=== PATIENT | male | born 1930 | race Caucasian/White ===

== ENCOUNTER 2016-08-24 00:26 | Inpatient (IN) | payer MEDICARE, BC ==
[~2016-08-24] VITALS: Ht 175.3 cm; Wt 77.6 kg
[2016-08-24] VITALS (14 sets, daily range): BP systolic 92–166; BP diastolic 42–69; PULSE 62–90; RESP 16–24; TEMP 96.7–101.9; O2SAT 95–99
[~2016-08-24 00:26] MED LIST: ASPI81TA82 PO; BENA5TAB PO; CARV12.52 PO; CENTTAB9 PO; HCTZ50TA PO; OCUVTAB4 PO; ULOR40TA PO; ZOCO40TA PO
[2016-08-24] MEDS ORDERED: SODIUM CHLOR 0.9% 1000 ML INJ 1,000 ML IV SCH ×2 (00:57→02:00)
[2016-08-24] MEDS ORDERED: SODIUM CHLORIDE 0.9% FLUSH 5 ML FLUSH IVF PRN ×2 (01:00→04:00)
[2016-08-24] MEDS ORDERED: MORPHINE SULFATE 4 MG/ML INJ IV PUSH ONE (01:00)
[2016-08-24] MEDS ORDERED: ONDANSETRON HCL 4 MG/2 ML VIAL IVP ONE (01:00)
--- NOTE | 2016-08-24 01:02 | PD ---
HPI Chief Complaint: Abdominal Pain Time Seen by Provider: 00:57 Travel History International Travel<30 days: No Contact w/Intl Traveler<30days: No Traveled to known affect area: No History of Present Illness HPI The patient is an 86-year-old male that complains of primarily right sided pain from the right flank to the right lower quadrant for one week. He also has left -sided abdominal pain and tenderness. He did not call his primary care physician. He states he has been slightly constipated but denies any nausea or vomiting. He denies any fever. He denies any diarrhea. He denies any dysuria , frequency or urgency. He does have a history of kidney stones many years ago. 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; PM 1989) High Cholesterol: Yes Coronary Artery Disease: Yes Hypertension: Yes Triglycerides - High: Yes Past Surgical History Body Medical Devices: PACER Cardiac Surgery: Yes (OPEN HEART) Pacemaker: Yes (MEDTRONIC) Social History Alcohol Use: Yes (RARE) Tobacco Use: No Substance Use: No Allergies-Medications (Allergen,Severity, Reaction): Coded Allergies: Tylenol (Unverified Allergy, Severe, Swelling, 08/24/16) Reported Meds & Prescriptions Reported Meds & Active Scripts Active Reported Preservision Areds (Multiple Vitamins W/ Minerals) 1 Tab 1 Tab PO DAILY Multi Vitamin (Multiple Vitamin) 1 Tab Tab 1 Tab PO DAILY Omeprazole 40 Mg Cap 40 Mg PO DAILY Carvedilol 25 Mg Tab 25 Mg PO BID Triamterene-Hydrochlorothiazide 37.5-25 Mg Cap 1 Cap PO DAILY Benazepril (Benazepril HCl) 5 Mg Tab 5 Mg PO DAILY Aspirin 81 Mg Chew 81 Mg CHEW DAILY Review of Systems Except as stated in HPI: all other systems reviewed are Neg Physical Exam Narrative GENERAL: The patient is alert, oriented 3 in moderate apparent distress with his abdominal pain. His vital signs are normal. SKIN: Warm and dry. HEAD: Atraumatic. Normocephalic. EYES: Pupils equal and round. No scleral icterus. No injection or drainage. ENT: No nasal bleeding or discharge. Mucous membranes pink and moist. NECK: Trachea midline. No JVD. CARDIOVASCULAR: Regular rate and rhythm. No murmur appreciated. RESPIRATORY: No accessory muscle use. Clear to auscultation. Breath sounds equal bilaterally. GASTROINTESTINAL: Abdomen soft, with tenderness in the right flank and right lower quadrant as well as left flank and left lower quadrant to direct palpation , nondistended. Hepatic and splenic margins not palpable. No guarding or rebound is present. MUSCULOSKELETAL: No obvious deformities. No clubbing. No cyanosis. No edema. NEUROLOGICAL: Awake and alert. No obvious cranial nerve deficits. Motor grossly within normal limits. Normal speech. PSYCHIATRIC: Appropriate mood and affect; insight and judgment normal. Data Data Last Documented VS Vital Signs Date Time Temp Pulse Resp B/P Pulse Ox O2 Delivery O2 Flow Rate FiO2 08/24/16 02:05 101.9 88 24 166/69 97 Nasal Cannula 2 Orders Complete Blood Count With Diff (08/24/16 00:57) Comprehensive Metabolic Panel (08/24/16 00:57) Urinalysis - C+S If Indicated (08/24/16 00:57) Ct Abd/Pel W Iv Contrast(Rout) (08/24/16 00:57) Iv Access Insert/Monitor (08/24/16 00:57) Ecg Monitoring (08/24/16 00:57) Oximetry (08/24/16 00:57) Morphine Inj (Morphine Inj) (08/24/16 01:00) Ondansetron Inj (Zofran Inj) (08/24/16 01:00) Sodium Chlor 0.9% 1000 Ml Inj (Ns 1000 M (08/24/16 00:57) Sodium Chloride 0.9% Flush (Ns Flush) (08/24/16 01:00) Lipase (08/24/16 00:57) Sodium Chlor 0.9% 1000 Ml Inj (Ns 1000 M (08/24/16 02:00) Lactic Acid (08/24/16 02:04) Blood Culture (08/24/16 02:04) Ketorolac Inj (Toradol Inj) (08/24/16 02:15) Electrocardiogram (08/24/16 ) Iohexol 350 Inj (Omnipaque 350 Inj) (08/24/16 02:36) Labs Laboratory Tests Test 08/24/16 01:20 White Blood Count 10.6 TH/MM3 Red Blood Count 3.63 MIL/MM3 Hemoglobin 10.9 GM/DL Hematocrit 33.4 % Mean Corpuscular Volume 92.2 FL Mean Corpuscular Hemoglobin 30.0 PG Mean Corpuscular Hemoglobin 32.5 % Concent Red Cell Distribution Width 12.8 % Platelet Count 223 TH/MM3 Mean Platelet Volume 6.9 FL Neutrophils (%) (Auto) 83.1 % Lymphocytes (%) (Auto) 11.2 % Monocytes (%) (Auto) 3.8 % Eosinophils (%) (Auto) 0.8 % Basophils (%) (Auto) 1.1 % Neutrophils # (Auto) 8.8 TH/MM3 Lymphocytes # (Auto) 1.2 TH/MM3 Monocytes # (Auto) 0.4 TH/MM3 Eosinophils # (Auto) 0.1 TH/MM3 Basophils # (Auto) 0.1 TH/MM3 CBC Comment AUTO DIFF Differential Comment AUTO DIFF CONFIRMED Platelet Estimate NORMAL Platelet Morphology Comment NORMAL Red Cell Morphology Comment NORMAL Sodium Level 140 MEQ/L Potassium Level 4.3 MEQ/L Chloride Level 103 MEQ/L Carbon Dioxide Level 27.2 MEQ/L Anion Gap 10 MEQ/L Blood Urea Nitrogen 26 MG/DL Creatinine 1.50 MG/DL Estimat Glomerular Filtration 45 ML/MIN Rate Random Glucose 134 MG/DL Calcium Level 8.7 MG/DL Total Bilirubin 0.5 MG/DL Aspartate Amino Transf 9 U/L (AST/SGOT) Alanine Aminotransferase 15 U/L (ALT/SGPT) Alkaline Phosphatase 97 U/L Total Protein 6.9 GM/DL Albumin 3.1 GM/DL Lipase 51 U/L MDM Medical Decision Making Medical Screen Exam Complete: Yes Emergency Medical Condition: Yes Medical Record Reviewed: Yes Interpretation(s) The CBC shows a hemoglobin of 10.9 and hematocrit of 33.4. There are 83% neutrophils. The CBC is otherwise unremarkable. The complete metabolic profile shows a BUN of 26, creatinine 1.5 with glucose 134 and albumin 3.1. The lipase is normal. The CT abdomen/pelvis with IV contrast shows acute appendicitis also shows a left renal mass that is likely renal cell carcinoma and 2 questionable points of air density in the left psoas muscle which may be an abscess versus an old hematoma. Differential Diagnosis Ischemic bowel, urinary stone, cholecystitis, pyelonephritis, appendicitis, perforated appendicitis Narrative Course The patient is suspicious of having a perforated appendicitis. It is gone on for a week now and there is questionable air in the abdomen which may be an abscess. He also has what appears as a renal cell carcinoma. Sepsis Criteria SIRS Criteria (2 or more): Temp > 100.9 or < 96.8 Physician Communication Physician Communication I discussed the patient with Dr. Pepe vernon. The patient will be a full admit because this is likely a perforated appendicitis and the patient also needs to be worked up for renal cell cancer. The patient will be given 3 mg of Zosyn. Diagnosis Primary Impression: Acute perforated appendicitis Additional Impression: Renal cell cancer Admitting Information Admitting Physician Requests: Admit Neno Loyola MD Aug 24, 2016 01:02
[2016-08-24] MEDS ORDERED: CARV25TA PO (01:10)
[2016-08-24] MEDS ORDERED: ULOR40TA PO (01:10)
[2016-08-24] MEDS ORDERED: OMEP40CA2 PO (01:10)
[2016-08-24] MEDS ORDERED: OCUVTAB4 PO (01:10)
[2016-08-24] MEDS ORDERED: MULT-135 PO (01:10)
[2016-08-24] MEDS ORDERED: ASPI81CH CHEW (01:10)
[2016-08-24] MEDS ORDERED: BENA5TAB PO (01:10)
[2016-08-24] MEDS ORDERED: TRIA37.53 PO (01:10)
[2016-08-24 01:27] LABS: AUTOMATED NEUTROPHIL # 8.8 TH/MM3 (1.8-7.7); BASOPHIL # 0.1 TH/MM3 (0-0.2); BASOPHIL % 1.1 % (0.0-2.0); EOSINOPHIL # 0.1 TH/MM3 (0-0.4); EOSINOPHIL % 0.8 % (0.0-4.0); HEMATOCRIT 33.4 % (39.0-51.0); LYMPH % 11.2 % (9.0-44.0); LYMPHOCYTE # 1.2 TH/MM3 (1.0-4.8); MEAN CELL VOLUME 92.2 FL (80.0-100.0); MEAN CORPUSCULAR HGB CONC 32.5 % (32.0-36.0); MONO % 3.8 % (0.0-8.0); NEUT % 83.1 % (16.0-70.0); PLATELET COUNT 223 TH/MM3 (150-450); RED BLOOD COUNT 3.63 MIL/MM3 (4.50-5.90); RED CELL DISTRIBUTION WIDTH 12.8 % (11.6-17.2); WHITE BLOOD COUNT 10.6 TH/MM3 (4.0-11.0)
[2016-08-24 01:29] LABS: HEMO FLAGS AUTO DIFF
[2016-08-24 01:34] LABS: CHLORIDE 103 MEQ/L (98-107); POTASSIUM 4.3 MEQ/L (3.5-5.1); SODIUM (NA) 140 MEQ/L (136-145)
[2016-08-24 01:38] LABS: ANION GAP 10 MEQ/L (5-15); BICARBONATE 27.2 MEQ/L (21.0-32.0); BLOOD UREA NITROGEN 26 MG/DL (7-18)
[2016-08-24 01:40] LABS: PLATELET ESTIMATE SMEAR NORMAL (NORMAL); PLATELET MORPHOLOGY NORMAL (NORMAL); SCAN/DIFF AUTO DIFF CONFIRMED
[2016-08-24 01:41] LABS: ALT (GPT) 15 U/L (12-78); AST (GOT) 9 U/L (15-37); GLOMERULAR FILTRATION RATE 45 ML/MIN (>89)
[2016-08-24 01:42] LABS: TOTAL BILIRUBIN ADULT 0.5 MG/DL (0.2-1.0)
[2016-08-24 01:44] LABS: ALKALINE PHOSPHATASE 97 U/L (45-117)
[2016-08-24] MEDS ORDERED: KETOROLAC TROMETHAMINE 60 MG/2 ML (IM) VIAL IVP ONE (02:15)
[2016-08-24] MEDS ORDERED: IOHEXOL 350 MG/ML 10 ML VIAL (for RAD DIAG) IV ONE (02:36)
--- NOTE | 2016-08-24 02:55 | RADHPO ---
EXAM DATE/TIME: 08/24/2016 02:32 [facility] COMPARISON: No previous studies available for comparison. INDICATIONS : Right abdomen pain today. IV CONTRAST: 100 cc Omnipaque 350 (iohexol) IV ORAL CONTRAST: No oral contrast ingested. RADIATION DOSE: 15.86 CTDIvol (mGy) MEDICAL HISTORY : Hypertension. SURGICAL HISTORY : Pacemaker. hip replacement. ENCOUNTER: Initial ACUITY: 1 day PAIN SCALE: 8/10 LOCATION: Right abdomen TECHNIQUE: Volumetric scanning of the abdomen and pelvis was performed. Using automated exposure control and ad justment of the mA and/or kV according to patient size, radiation dose was kept as low as reasonably achievable to obtain optimal diagnostic quality images. FINDINGS: LOWER LUNGS: The visualized lower lungs are clear. The patient is status post sternotomy and has a pacing device i n place. LIVER: Homogeneous density without lesion. There is no dilation of the biliary tree. No calcified gallston es. SPLEEN: Normal size without lesion. PANCREAS: Within normal limits. KIDNEYS: There is a 3.1 cm heterogeneous solid mass seen at the posterior inferior lateral left kidney which n eeds to be viewed with suspicion. There is no stone or hydronephrosis. Renal cysts are seen. ADRENAL GLANDS: Within normal limits. VASCULAR: There is no aortic aneurysm. BOWEL/MESENTERY: There is a very distended appendix measuring 1.9 cm with surrounding inflammatory change. There is so me thickening of the right paracolic gutter. There is a small hiatal hernia. Colonic diverticula are seen. There is a mild amount of free fluid seen in the pelvis. ABDOMINAL WALL: Within normal limits. RETROPERITONEUM: There is no lymphadenopathy. BLADDER: No wall thickening or mass. REPRODUCTIVE: Within normal limits. INGUINAL: There is no lymphadenopathy or hernia. MUSCULOSKELETAL: There is a 2.8 cm area of low density seen in the posterior left psoas at the level of the thoracic i nlet. There is degenerative change in the lumbar spine. There is a left hip prosthesis in place.CONCL USION: 1. Appendicitis. 2. 3.1 cm left renal mass potentially representing a renal cell carcinoma. 3. 2 points and air area of low-density in the left psoas muscle which may be an abscess versus an ol d hematoma. Jimmy Reynaga MD on August 24, 2016 at 2:48 Board Certified Radiologist. This report was verified electronically.
[2016-08-24] MEDS ORDERED: PIPERACIL-TAZO 3.375 GM PREMIX 50 ML IV ONE (03:15)
[2016-08-24] MEDS ORDERED: ONDANSETRON HCL 4 MG/2 ML VIAL IV PRN (04:00)
[2016-08-24 05:07] LABS: BLOOD, URINE TRACE (NEG); GLUCOSE,URINE NEG (NEG); KETONE, URINE NEG (NEG); NITRITE,URINE NEG (NEG)
[2016-08-24 05:16] LABS: URINE COLOR YELLOW (YELLW/STRAW)
[2016-08-24 05:17] LABS: COMMENT (UR) CULT NOT INDICATED; CULTURE IF INDICATED CULT NOT INDICATED; RBC, URINE 0-3 /hpf (0-3); SQUAMOUS EPITHELIAL CELL URINE 0-5 /hpf (0-5); WBC, URINE 0-2 /hpf (0-5)
[2016-08-24] MEDS ORDERED: MORPHINE SULFATE 4 MG/ML INJ IV PRN (08:30)
[2016-08-24] MEDS ORDERED: SODIUM CHLORIDE 0.9% FLUSH 5 ML FLUSH IV FLUSH PRN (08:30)
[2016-08-24] MEDS ORDERED: SODIUM CHLORIDE 0.9% FLUSH 5 ML FLUSH IVF SCH (09:00)
[2016-08-24] MEDS ORDERED: SODIUM CHLORID 0.9% 500 ML IV SCH (10:00)
[2016-08-24] MEDS ORDERED: LACTATED RINGER'S 1000 ML IV SCH (10:00)
[2016-08-24] MEDS: SODIUM CHLORIDE 0.9% FLUSH 5 ML FLUSH IV FLUSH SCH ×2 (10:10→22:05)
[2016-08-24] MEDS: PANTOPRAZOLE SODIUM 40 MG VIAL IV SCH (10:10)
[2016-08-24] MEDS ORDERED: METOPROLOL TARTRATE 25 MG TAB PO PRN (10:30)
[2016-08-24] MEDS ORDERED: INSULIN HUMAN REGULAR 1,000 UNITS/10 ML VIAL SQ PRN (10:30)
[2016-08-24] MEDS ORDERED: PIPERACIL-TAZO 3.375 GM PREMIX 50 ML IV SCH (11:00)
[2016-08-24] MEDS ORDERED: DEXAMETHASONE SOD PHOS 4 MG/ML VIAL ONE (11:17)
[2016-08-24] MEDS ORDERED: FAMOTIDINE 20 MG/2 ML VIAL ONE (11:17)
[2016-08-24] MEDS ORDERED: MIDAZOLAM HCL 2 MG/2 ML VIAL ONE (11:17)
[2016-08-24] MEDS ORDERED: BUPIVACAINE/EPINEPHRINE 0.25% PF 30 ML VIAL INFIL ONE (11:47)
--- NOTE | 2016-08-24 11:58 | MH ---
cc: KELSIE ROSENBERG M.D. DATE OF ADMISSION: 08/24/2016 CHIEF COMPLAINT Abdominal pain. HISTORY OF PRESENT ILLNESS Mr. Gary is a very pleasant 86-year-old gentleman who presented to the emergency department early this morning with complaints of abdominal pain. He was seen and evaluated by Dr. Neno Loyola. He has worked up and found to have concerns for possible perforated appendicitis by CT scan abdomen and pelvis. Surgical consultation was requested. The patient reports that he has had some right flank and low back pain for the last several weeks. He reports undergoing a hip replacement by Dr. Ken swartz in May. Since then he has had some low back and flank pain. He states that when he went to physical therapy yesterday he developed some abdominal pain. Abdominal pain was mainly in the right lower quadrant. He states that when he went to go to bed last night he was still hurting and he asked his neighbor to bring him to the emergency room. In the emergency room he was seen by Dr. Loyola where he was worked up and had a CT scan that was concerning for possible perforated appendicitis. The patient reports no fever or chills. He denies any nausea or vomiting. He does report some constipation. He has not moved his bowels for several days. He states he has had some urinary problems since his hip replacement due to the fact that they catheterized him and he apparently has an appointment with Dr. Fab Cortes tomorrow for evaluation of his urinary dysfunction. PAST MEDICAL HISTORY Past medical history includes: 1. Cardiac arrhythmia. 2. Coronary artery disease. 3. Hypertension. PAST SURGICAL HISTORY 1. He has had open heart surgery approximately 20 years ago. 2. He has had a pacemaker placed. MEDICATION His medication list includes: 1. Multivitamin. 2. Prilosec. 3. Carvedilol. 4. Triamterene hydrochlorothiazide. 5. Benazepril. 6. Aspirin 81 mg a day. ALLERGIES He is allergic to TYLENOL. SOCIAL HISTORY He does not smoke or drink. [place]. FAMILY HISTORY His family history is noncontributory. PHYSICAL EXAMINATION VITAL SIGNS: Temperature is 98, pulse is 100.5, blood pressure is 118/52, respiratory rate 20. GENERAL: This is a pleasant elderly gentleman sitting in his bed visiting with his neighbor, no apparent distress. HEENT: Pupils equal, round, reactive to light. Sclerae are white. Oropharynx is clear and moist. NECK: Neck is supple. No masses. LUNGS: Clear to auscultation bilaterally. HEART: S1-S2, no murmur. ABDOMEN: Soft, tender in the right lower quadrant with some voluntary guarding and rebound. He also has Rovsing's and psoas sign. No abdominal masses. EXTREMITIES: Free range of motion x4. NEUROLOGIC: Alert and oriented x3. LABORATORY DATA White blood cell count 10 with 83% neutrophils. Hemoglobin is 10, platelet count is 223. Electrolytes are basically within normal limits. Slight elevation of BUN at 26 and creatinine at 1.50. GFR is 45. Glucose elevated at 134. IMAGING STUDIES CT scan of the abdomen and pelvis shows a thickened appendix in the right lower quadrant with inflammation changes and small amount of free fluid, all concerning for possible perforated appendicitis. The patient also has what appears to be a psoas hematoma and a left renal mass. IMPRESSION Acute appendicitis, possibly perforated. PLAN The patient will be taken to the operating room this morning for diagnostic laparoscopy, laparoscopic appendectomy. Risks and benefits of the procedure was discussed with him and he was agreeable. The patient has already been started on broad-spectrum antibiotics by the emergency department. MD MARE Mcduffie/BENTLEY /11:20 AM /11:27 AM
[2016-08-24] MEDS ORDERED: ONDANSETRON HCL 4 MG/2 ML VIAL IV PUSH ONE (12:52)
[2016-08-24] MEDS ORDERED: ePHEDrine/NS 50 MG/5 ML SYR IV ONE (12:52)
[2016-08-24] MEDS ORDERED: NEOSTIGMINE 3 MG/3 ML SYR IV ONE (12:52)
[2016-08-24] MEDS ORDERED: PROPOFOL 200 MG/20 ML AMP IV ONE (12:52)
[2016-08-24] MEDS ORDERED: DO NOT ADM ANY ANTICOAGULANT DRUGS XX PRN (13:30)
[2016-08-24] MEDS ORDERED: fentaNYL CITRATE 250 MCG/5 ML AMP ONE (14:23)
[2016-08-24] MEDS: LACTATED RINGER'S 1000 ML INJ 1,000 ML IV SCH ×2 (14:30→18:26)
--- NOTE | 2016-08-24 16:16 | MP ---
cc: KELSIE ROSENBERG M.D. DATE OF SURGERY: 08/24/2016 PREOPERATIVE DIAGNOSIS: Probable perforated appendicitis POSTOPERATIVE DIAGNOSIS: Perforated gangrenous appendicitis. OPERATIVE PROCEDURE PERFORMED: 1. Diagnostic laparoscopy 2. Attempted appendectomy. 3. Incision and drainage of right lower quadrant abscess with placement of drain. SURGEON: Kelsie Rosenberg MD. HEDIS NURSE: MICHAEL Awad. ANESTHESIA: General endotracheal anesthesia. COMPLICATIONS: None. INDICATIONS FOR THE PROCEDURE: Mr. Gary is a pleasant 86-year-old gentleman who apparently has been having some abdominal pain for approximately seven days. He thought this was related to the physical therapy for his recent the hip replacement several months ago. His pain persisted and became unbearable. He was brought to the emergency department by a friend of his early this morning. He was seen and evaluated by Dr. Loyola and he was worked up and found to have a CT scan concerning for appendicitis with probable rupture as well as a left renal mass. Surgical consultation was requested. The patient was seen and evaluated. He was noted have a minimal elevation of his white count with a large percentage of neutrophils. He was not tachycardiac or hypotensive. He did have a significant abdominal pain in the right lower quadrant. He was advised to undergo diagnostic laparoscopy, possible appendectomy, possible drainage of right lower quadrant abscess. It should be noted that the patient did not have a definable large abscess that was amenable to percutaneous drainage. Risks and benefits were discussed with him and he was agreeable. DESCRIPTION OF THE PROCEDURE IN DETAIL: The patient was identified and brought to the operating room and placed supine on the operating table. After adequate general endotracheal anesthesia was achieved, the abdomen was prepped and draped in the standard surgical fashion. The infraumbilical space was anesthetized with 0.25% Marcaine. An infraumbilical incision was made. Dissection was carried down through the subcutaneous tissue to the midline fascia. The midline fascia was then incised sharply. A finger was placed in peritoneal cavity without difficulty. Immediately we noted purulent fluid coming out of the umbilical incision. A 10 mm trocar was inserted and the abdomen was insufflated to 15 mmHg using CO2 gas. Next a 30-degree laparoscope was inserted. Immediately we noted diffuse peritonitis with purulent fluid throughout the abdominal cavity. Two 5 mm trocars were then placed in the lower midline under direct vision. The trocars were placed after anesthetizing the skin and subcutaneous tissue with 0.25% Marcaine. Next, the suction assistant corporate controller was used to evacuate out all the pus. The patient had a significant inflammatory rind in the right lower quadrant and this was taken down with the suction assistant corporate controller as well. Attention was directed to the cecum, which was noted be quite distended. By CT imaging, the patient had a large amount of stool in the cecum. Several loops of small bowel were matted over in this area and these were carefully taken down with blunt and hydrodissection. What appeared to be the appendix was going out laterally toward the lateral retroperitoneal position. Again, using the suction assistant corporate controller out, we were able to identify the abscess cavity. A large amount of pus was identified and suctioned out. There was a large amount of necrotic material in this area. This was followed up along the lateral abdominal wall to where the inflammatory process terminated. We were unable to identify any tubular structure which appeared to be the appendix. We found several pieces of what appeared to be the appendix. There was no definable appendix itself. We were able to identify what we thought was the proximal appendix going into the cecal base. We identified a point of perforation in this proximal appendix. We mobilized up the stump and what was left of the appendix. We placed an Endoloop on it just proximal to where the site of perforation was. We did not transect the remaining appendix as it was very short and the harmonic scalpel was very close to where the Endoloop was placed. We next rinsed the abdominal cavity out with 6 liters of warm saline solution until the effluent was noted to be clear. The cecum was carefully inspected. There was no evidence of enterotomy and there was no evidence of leakage of stool. We also inspected the terminal ileum going into the cecum and it was without obvious injury. A 10-Lebanese Olivier-Moran drain was inserted and placed into the lateral abdominal sidewall where the inflammatory process and necrotic tissue was identified. We also laid it adjacent to the cecal base where the stump of the appendix appeared to be. It terminated down in the pelvis. It was brought out through one of the 5-mm port sites in the lower midline. Again, the abdomen was rinsed out a third time and the effluent was noted be clear. The omentum was then placed over the cecal base and over the Olivier-Moran drain. The abdomen was then carefully desufflated. Midline fascia was repaired with a #0 Vicryl in a [id number] fashion. Skin was closed with 4-0 Vicryl. The drain was secured with 3-0 nylon. The patient tolerated the procedure well. No specimens were sent as there was no remaining piece of the appendix large enough to send. The patient was brought to recovery in stable condition. MD MARE Mcduffie/JAYNE /2:30 PM /3:55 PM
[2016-08-24] MEDS: PIPERACIL-TAZO 3.375 GM PREMIX 50 ML IV SCH (17:32)
--- NOTE | 2016-08-24 18:56 | EKG ---
Date Performed: 08/24/2016 Time Performed: 08:35:48 PTAGE: 86 years EKG: ELECTRONIC VENTRICULAR PACEMAKER ABNORMAL RHYTHM ECG PREVIOUS TRACING : 06/01/2014 10.26 Compared to prior tracing no significant change DOCTOR: Tarun Lua Interpretating Date/Time 08/24/2016 18:55:42
--- NOTE | 2016-08-24 19:43 | EKG ---
Date Performed: 08/24/2016 Time Performed: 02:51:00 PTAGE: 86 years EKG: Sinus rhythm with V pacing PREVIOUS TRACING : 06/01/2014 10.26 Compared to the previous tracing, previously AV-paced , [facility] DOCTOR: Tarun Lua Interpretating Date/Time 08/24/2016 19:41:40
[2016-08-25] VITALS (8 sets, daily range): BP systolic 94–126; BP diastolic 50–76; PULSE 58–64; RESP 16–18; TEMP 96.5–98.2; O2SAT 64–97
[2016-08-25] MEDS: PIPERACIL-TAZO 3.375 GM PREMIX 50 ML IV SCH ×3 (02:04→17:41)
[2016-08-25] MEDS: LACTATED RINGER'S 1000 ML INJ 1,000 ML IV SCH ×2 (04:20→12:57)
[2016-08-25] MEDS: SODIUM CHLORIDE 0.9% FLUSH 5 ML FLUSH IV FLUSH SCH ×2 (09:00→21:00)
[2016-08-25 09:13] LABS: AUTOMATED NEUTROPHIL # 16.2 TH/MM3 (1.8-7.7); BASOPHIL % 0.1 % (0.0-2.0); HEMATOCRIT 28.8 % (39.0-51.0); HEMO FLAGS DIFF FINAL; LYMPH % 4.5 % (9.0-44.0); LYMPHOCYTE # 0.8 TH/MM3 (1.0-4.8); MEAN CELL VOLUME 94.8 FL (80.0-100.0); MEAN CORPUSCULAR HEMOGLOBIN 30.7 PG (27.0-34.0); MEAN CORPUSCULAR HGB CONC 32.3 % (32.0-36.0); MONO % 2.5 % (0.0-8.0); NEUT % 92.9 % (16.0-70.0); PLATELET COUNT 168 TH/MM3 (150-450); RED BLOOD COUNT 3.03 MIL/MM3 (4.50-5.90); RED CELL DISTRIBUTION WIDTH 13.7 % (11.6-17.2); WHITE BLOOD COUNT 17.4 TH/MM3 (4.0-11.0)
[2016-08-25] MEDS: PANTOPRAZOLE SODIUM 40 MG VIAL IV SCH (09:13)
[2016-08-25 09:19] LABS: BICARBONATE 19.3 MEQ/L (21.0-32.0); POTASSIUM 3.9 MEQ/L (3.5-5.1)
--- NOTE | 2016-08-25 12:06 | HHI.PR ---
Subjective Subjective Notes Up to chair Feeling better Passing gas Objective Vitals/I&O Vital Signs Date Time Temp Pulse Resp B/P Pulse Ox O2 Delivery O2 Flow Rate FiO2 08/25/16 08:12 97.5 60 16 95/50 96 08/24/16 14:00 Nasal Cannula 2 Labs Laboratory Tests Test 08/25/16 08:32 White Blood Count 17.4 Red Blood Count 3.03 Hemoglobin 9.3 Hematocrit 28.8 Mean Corpuscular Volume 94.8 Mean Corpuscular Hemoglobin 30.7 Mean Corpuscular Hemoglobin 32.3 Concent Red Cell Distribution Width 13.7 Platelet Count 168 Mean Platelet Volume 8.2 Neutrophils (%) (Auto) 92.9 Lymphocytes (%) (Auto) 4.5 Monocytes (%) (Auto) 2.5 Eosinophils (%) (Auto) 0.0 Basophils (%) (Auto) 0.1 Neutrophils # (Auto) 16.2 Lymphocytes # (Auto) 0.8 Monocytes # (Auto) 0.4 Eosinophils # (Auto) 0.0 Basophils # (Auto) 0.0 CBC Comment DIFF FINAL Differential Comment Hematology Comments Sodium Level 136 Potassium Level 3.9 Chloride Level 106 Carbon Dioxide Level 19.3 Anion Gap 11 Blood Urea Nitrogen 35 Creatinine 1.51 Estimat Glomerular Filtration 44 Rate Random Glucose 111 Calcium Level 8.0 Date/Time Procedure Status Source Growth 08/24/16 03:05 Aerobic Blood Culture - Preliminary Resulted Blood Peripheral NO GROWTH IN 1 DAY 08/24/16 03:05 Anaerobic Blood Culture - Preliminary Resulted Blood Peripheral NO GROWTH IN 1 DAY Cardiovascular: Regular Lungs: Clear Abdomen: Other (abdomen soft; lap sites c/d/i ) Extremities: No edema A/P Assessment and Plan 86 year old male POD1 lap appy; perforated -WBC bump up---likely post op -Okay to start sips of clears -Due to overt infection in abdomen---patient is a high risk for ileus -OOB and mobilize -Continue Zosyn -Appreciate Hospitalist consult I certify and attest that I personally examined this patient and reviewed her findings in the EMR. Ms Wagner is documenting our encounter on my behalf and entered orders under my direct supervision. I discussed our recommendations with the patient and family at the bedside. I also discussed our encounter with the nursing staff present. Alexsandra Chandler FACS Aug 25, 2016 12:06 Pepe Rosas MD Sep 01, 2016 10:35
--- NOTE | 2016-08-25 13:50 | PD.CONS ---
HPI Service [facility] Hospitalists Consult Requested By Dr. Rosas Reason for Consult Medical management Primary Care Physician Andrew Warren III, MD Diagnoses: History of Present Illness Pt is a very pleasant 86-year-old gentleman who presented to the emergency department on 05/24 with right sided abdominal pain for several weeks. Has significant PMHx of CAD, PPM, CABG. Pt. had recent left hip surgery by Dr. Rogers at [facility] complicated by UTI and left leg cellulitis. Was in rehab until end of June. States he had been doing outpatient rehab in July when he started to have right flank and low back pain that then moved to right lower abdomen and became worst in the last couple of days. Initially he thought it was due to his PT routine. Yesterday, he could not tolerate the pain therefore he presented to the ED for further evaluation. He was seen by ED physician and found have possible perforated appendicitis by CT scan abdomen and pelvis. Surgical consultation was requested. During CT evaluation a left renal mass possibly renal cell carcinoma as well as a left psoas hematoma was noted. Pt. underwent surgery yesterday, s/p diagnostic laparoscopy with attempted appendectomy and I/D of right lower quadrant abscess with placement of drain. Pt. was put on empiric antibiotics. Pt. is POD #1, doing relatively well. No fever, no chills. He has not had BM yet, currently on clear liquid diet and tolerating fairly well. He had a fever initially, none in the last 24 hours. WBC is 17.4. He is on empiric antibiotics, cultures are pending. Pt. states he had complications with staph infection after he had a pacemaker placed that required explantation and then reinsertion. He was hospitalized for almost 3 months. Pt. very concerned about renal mass, states he will be seeing Dr. Cortes when he is discharged. Prior to admission, he was having problems with urinary retention and had already made an appointment. Denies any prior history of cancer. Hospitalist services are requested for medical management. Review of Systems Constitutional: DENIES: Diaphoretic episodes, Fatigue, Fever, Weight gain, Weight loss, Chills, Dizziness, Change in appetite, Night Sweats Endocrine: DENIES: Heat/cold intolerance, Polydipsia, Polyuria, Polyphagia Eyes: DENIES: Blurred vision, Diplopia, Eye inflammation, Eye pain, Vision loss , Photosensitivity, Double Vision Ears, nose, mouth, throat: DENIES: Tinnitus, Hearing loss, Vertigo, Nasal discharge, Oral lesions, Throat pain, Hoarseness, Ear Pain, Running Nose, Epistaxis, Sinus Pain, Toothache, Odynophagia Respiratory: DENIES: Apneas, Cough, Snoring, Wheezing, Hemoptysis, Sputum production, Shortness of breath Cardiovascular: DENIES: Chest pain, Palpitations, Syncope, Dyspnea on Exertion , PND, Lower Extremity Edema, Orthopnea, Claudication Gastrointestinal: COMPLAINS OF: Abdominal pain, DENIES: Black stools, Bloody stools, Constipation, Diarrhea, Nausea, Vomiting, Difficulty Swallowing, Anorexia Genitourinary: DENIES: Sexual dysfunction, Urinary frequency, Urinary incontinence, Urgency, Hematuria, Dysuria, Nocturia, Penile Discharge, Testicular Pain, Testicular Swelling Musculoskeletal: DENIES: Joint pain, Muscle aches, Stiffness, Joint Swelling, Back pain, Neck pain Integumentary: DENIES: Abnormal pigmentation, Nail changes, Pruritus, Rash Hematologic/lymphatic: DENIES: Bruising, Lymphadenopathy Immunologic/allergic: DENIES: Eczema, Urticaria Neurologic: DENIES: Abnormal gait, Headache, Localized weakness, Paresthesias, Seizures, Speech Problems, Tremor, Poor Balance Psychiatric: DENIES: Anxiety, Confusion, Mood changes, Depression, Hallucinations, Agitation, Suicidal Ideation, Homicidal Ideation, Delusions Past Family Social History Past Medical History CAD HTN Hyperlipidemia OA SSS S/P pacemaker pacemaker infection requiring explantation and reimplantation recent cellulitis left leg recent UTI Past Surgical History PPM surgeries x 2 CABG 20 years ago Left hip replacement 2015 Reported Medications Reported Meds & Active Scripts Active Reported Preservision Areds (Multiple Vitamins W/ Minerals) 1 Tab 1 Tab PO DAILY Multi Vitamin (Multiple Vitamin) 1 Tab Tab 1 Tab PO DAILY Omeprazole 40 Mg Cap 40 Mg PO DAILY Carvedilol 25 Mg Tab 25 Mg PO BID Triamterene-Hydrochlorothiazide 37.5-25 Mg Cap 1 Cap PO DAILY Benazepril (Benazepril HCl) 5 Mg Tab 5 Mg PO DAILY Aspirin 81 Mg Chew 81 Mg CHEW DAILY Allergies: Coded Allergies: Tylenol (Unverified Allergy, Severe, Swelling, 08/24/16) Active Ordered Medications Inpatient Medications Insulin Human Regular (NovoLIN R INJ) See Protocol Table ... UNSCH X1 PRN SQ SEE PROTOCOL; Start 08/24/16 at 10:30; Stop 08/24/16 at 13:28; Status DC IV Flush (NS Flush) 2 ml UNSCH PRN IV FLUSH FLUSH AFTER USING IV ACCESS; Start 08/24/16 at 08:30 IV Flush 2 ml 2 ml UNSCH PRN IVF FLUSH AFTER USING IV ACCESS; Start 08/24/16 at 04:00; Stop 08/24/16 at 08:32; Status DC Ketorolac Tromethamine (Toradol Inj) 30 mg ONCE ONCE IVP Last administered on 08/24/16 02:14; Start 08/24/16 at 02:15; Stop 08/24/16 at 02:16; Status DC Lactated Ringer's 1,000 ml @ 30 mls/hr Q24H IV Last administered on 08/24/16 10:10; Start 08/24/16 at 10:00; Stop 08/24/16 at 13:28; Status DC Lactated Ringer's (Lr 1000 ml Inj) 1,000 ml @ 100 mls/hr Q10H IV Last administered on 08/24/16 14:30; Start 08/24/16 at 08:26 Metoprolol Tartrate (Lopressor) 25 mg UNSCH X1 PRN PO SEE LABEL COMMENTS; Start 08/24/16 at 10:30; Stop 08/24/16 at 13:28; Status DC Miscellaneous Information ALL NURSING DEPARTME... UNSCH PRN XX SEE LABEL COMMENTS; Start 08/24/16 at 13:30; Stop 08/25/16 at 13:29; Status DC Morphine Sulfate (Morphine Inj) 4 mg ONCE ONCE IV PUSH Last administered on 02:10; Start 08/24/16 at 01:00; Stop 08/24/16 at 01:01; Status DC Morphine Sulfate 3 mg 3 mg Q4H PRN IV Pain 6-10;if unable to take PO; Start at 08:30 Ondansetron HCl (Zofran Inj) 4 mg Q6H PRN IV NAUSEA OR VOMITING; Start at 04:00 Ondansetron HCl 4 mg 4 mg ONCE ONCE IVP Last administered on 08/24/16 02:11; Start 08/24/16 at 01:00; Stop 08/24/16 at 01:01; Status DC Pantoprazole Sodium (Protonix Inj) 40 mg DAILY IV Last administered on 09:13; Start 08/24/16 at 09:00 Piperacillin Sod/ Tazobactam Sod (Zosyn 3.375 Gm Premix) 50 ml @ 100 mls/hr Q8H IV Last administered on 08/25/16 09:12; Start 08/24/16 at 17:00 Sodium Chloride (NS 1000 ml Inj) 1,000 ml @ 2,000 mls/hr Q30M IV Last administered on 08/24/16 02:14; Start 08/24/16 at 02:00; Stop 08/24/16 at 02:29 ; Status DC Sodium Chloride (NS 500 ml Inj) 500 ml @ 30 mls/hr [id number] IV ; Start 08/24/16 at 10:00; Stop 08/24/16 at 13:28; Status DC Family History Reviewed, non contributory Social History Lives alone, active, has grown children. No smoking, no ETOH, no substance abuse Physical Exam Vital Signs Vital Signs Date Time Temp Pulse Resp B/P Pulse Ox O2 Delivery O2 Flow Rate FiO2 08/25/16 12:10 97.7 64 16 114/56 97 08/25/16 08:12 97.5 60 16 95/50 96 08/25/16 04:00 96.7 63 16 108/58 94 08/25/16 00:00 98.0 61 16 94/55 95 08/24/16 20:15 97.7 62 18 104/51 96 08/24/16 20:00 97.7 62 18 104/51 96 08/24/16 16:40 96.8 66 20 98/53 96 08/24/16 14:15 62 14 110/55 97 08/24/16 14:00 97.9 65 16 108/50 98 Nasal Cannula 2 Physical Exam GENERAL: This is a well-nourished, well-developed patient, in no apparent distress. SKIN: No rashes, ecchymoses or lesions. Cool and dry. HEAD: Atraumatic. Normocephalic. No temporal or scalp tenderness. EYES: Pupils equal round and reactive. Extraocular motions intact. No scleral icterus. No injection or drainage. ENT: Nose without bleeding, purulent drainage or septal hematoma. Throat without erythema, tonsillar hypertrophy or exudate. Uvula midline. Airway patent. NECK: Trachea midline. No JVD or lymphadenopathy. Supple, nontender, no meningeal signs. CARDIOVASCULAR: Regular rate and rhythm with soft murmur. No gallops, or rubs. PPM to right chest wall. Scar to right upper chest wall. RESPIRATORY: Clear to auscultation. Breath sounds equal bilaterally. No wheezes , rales, or rhonchi. GASTROINTESTINAL: Abdomen soft, tender, nondistended. Mid abd. incision. DANO drain in place with SS drainage. No hepato-splenomegaly, or palpable masses. No guarding. MUSCULOSKELETAL: Extremities without clubbing, cyanosis, or edema. No joint tenderness, effusion, or edema noted. No calf tenderness. Negative Homans sign bilaterally. NEUROLOGICAL: Awake and alert. Cranial nerves II through XII intact. Motor and sensory grossly within normal limits. Five out of 5 muscle strength in all muscle groups. Normal speech. Laboratory Laboratory Tests Test 08/25/16 08:32 White Blood Count 17.4 Red Blood Count 3.03 Hemoglobin 9.3 Hematocrit 28.8 Mean Corpuscular Volume 94.8 Mean Corpuscular Hemoglobin 30.7 Mean Corpuscular Hemoglobin 32.3 Concent Red Cell Distribution Width 13.7 Platelet Count 168 Mean Platelet Volume 8.2 Neutrophils (%) (Auto) 92.9 Lymphocytes (%) (Auto) 4.5 Monocytes (%) (Auto) 2.5 Eosinophils (%) (Auto) 0.0 Basophils (%) (Auto) 0.1 Neutrophils # (Auto) 16.2 Lymphocytes # (Auto) 0.8 Monocytes # (Auto) 0.4 Eosinophils # (Auto) 0.0 Basophils # (Auto) 0.0 CBC Comment DIFF FINAL Differential Comment Hematology Comments Sodium Level 136 Potassium Level 3.9 Chloride Level 106 Carbon Dioxide Level 19.3 Anion Gap 11 Blood Urea Nitrogen 35 Creatinine 1.51 Estimat Glomerular Filtration 44 Rate Random Glucose 111 Calcium Level 8.0 Date/Time Procedure Status Source Growth 08/24/16 03:05 Aerobic Blood Culture - Preliminary Resulted Blood Peripheral NO GROWTH IN 1 DAY 08/24/16 03:05 Anaerobic Blood Culture - Preliminary Resulted Blood Peripheral NO GROWTH IN 1 DAY Result Diagram: 08/25/16 0832 08/25/16 0832 Imaging Last Impressions Abdomen/Pelvis CT 08/24/16 0057 Signed Impressions: Service Date/Time: August 02:32 - CONCLUSION: 1. Appendicitis. 2. 3.1 cm left renal mass potentially representing a renal cell carcinoma. 3. 2 points and air area of low-density in the left psoas muscle which may be an abscess versus an old hematoma. Jimmy Reynaga MD A/P Diagnosis: (1) Acute perforated appendicitis (2) Renal cell cancer (3) Leukocytosis (4) s/p diagnostic laparoscopy with attempted appendectomy and I/D of right lower quadrant abscess with placement of drain (5) Acute renal injury (6) Pacemaker (7) HTN (hypertension) (8) Hyperlipidemia Assessment and Plan Thank you for this consultation, we will assist with medical management 86 year old male admitted with abdominal pain, found with acute perforated appendicitis. s/p diagnostic laparoscopy with attempted appendectomy and I/D of right lower quadrant abscess with placement of drain 08/24 -continue with IVF -Clear liquid diet -monitor bowel function -continue empiric antibiotics, follow cultures. -Pain management Acute renal injury Continue with IV fluids Monitor renal function Left renal mass per CT findings -Follow up with Dr. Cortes as OP for further work up. CAD, hx CABG -Resume carvedilol Hold aspirin for now Hypertension, blood pressure running low 100s Hold antihypertensive agents for now SCDs for DVT prophylaxis PPI for GI prophylaxis Labs in am Plan of care discussed with the patient, attending and registered nurse. Further management of the patient will be dependent on the hospital course This patient was seen by myself and Dr. Carson, this consultation is written on her behalf Thank you for this consultation, we will be following pt. along with you. Problem Qualifiers (1) Renal cell cancer: Qualified Code: C64.2 - Renal cell cancer, left (2) Leukocytosis: Qualified Code: D72.829 - Leukocytosis, unspecified type (3) HTN (hypertension): Qualified Code: I10 - Essential hypertension (4) Hyperlipidemia: Qualified Code: E78.5 - Hyperlipidemia, unspecified hyperlipidemia type Brittany Min Aug 25, 2016 13:50
[2016-08-25] MEDS: CARVEDILOL 3.125 MG TAB PO SCH (21:00)
[2016-08-25] MEDS ORDERED: CARVEDILOL 12.5 MG TAB PO SCH (21:00)
[2016-08-26] VITALS (11 sets, daily range): BP systolic 101–129; BP diastolic 54–59; PULSE 54–62; RESP 16; TEMP 95.5–98.4; O2SAT 92–96
[2016-08-26] MEDS: LACTATED RINGER'S 1000 ML INJ 1,000 ML IV SCH ×3 (01:51→20:30)
[2016-08-26] MEDS: PIPERACIL-TAZO 3.375 GM PREMIX 50 ML IV SCH ×4 (01:51→23:48)
[2016-08-26 05:50] LABS: HEMATOCRIT 26.3 % (39.0-51.0); MEAN CELL VOLUME 92.6 FL (80.0-100.0); MEAN CORPUSCULAR HEMOGLOBIN 30.7 PG (27.0-34.0); MEAN CORPUSCULAR HGB CONC 33.2 % (32.0-36.0); PLATELET COUNT 152 TH/MM3 (150-450); RED BLOOD COUNT 2.84 MIL/MM3 (4.50-5.90); RED CELL DISTRIBUTION WIDTH 13.6 % (11.6-17.2); REVIEW FLAG FINAL
[2016-08-26 06:18] LABS: BICARBONATE 24.7 MEQ/L (21.0-32.0)
[2016-08-26 06:38] LABS: POTASSIUM 3.9 MEQ/L (3.5-5.1)
[2016-08-26] MEDS: PANTOPRAZOLE SODIUM 40 MG VIAL IV SCH (08:47)
[2016-08-26] MEDS: CARVEDILOL 3.125 MG TAB PO SCH ×2 (08:52→20:31)
[2016-08-26] MEDS: SODIUM CHLORIDE 0.9% FLUSH 5 ML FLUSH IV FLUSH SCH ×2 (08:53→20:30)
--- NOTE | 2016-08-26 12:12 | HHI.PR ---
Subjective Subjective Remarks Alert talkative cooperative Up in chair Soreness left lower quadrant Constipation Appetite fair, starting to rebuild (Teressa Davey) Review of Systems Constitutional Constitutional: Weakness (generalized) (Teressa Davey) GI/Abdomen GI/Abdominal Exam: Constipation GI/Abdomen Remarks Left lower quadrant soreness Tenderness, umbilicus surgical site with drain (Teressa Davey) Genitourinary Genitourinary: Frequency (in bed last night. Better when he can stand or be in an upright position to avoid) (Teressa Davey) Musculoskeletal MS: Weakness (mild) (Teressa Davey) Integumentary Skin: Wounds (surgical site today 2, postop) (Teressa Davey) Psychiatric Psychiatric: Normal Mood (Teressa Davey) Vitals/Results Intake & Output 08/25/16 08/25/16 08/26/16 15:00 23:00 07:00 Intake Total 1938 ml 1140 ml 2050 ml Output Total 20 ml 550 ml 300 ml Balance 1918 ml 590 ml 1750 ml Intake Oral 1140 ml 240 ml IV Total 1938 ml 1810 ml Output Urine Total 550 ml 300 ml Drainage Total 20 ml # Voids 4 # Bowel Movements 0 0 Vital Signs Vital Signs Date Time Temp Pulse Resp B/P Pulse Ox O2 Delivery O2 Flow Rate FiO2 08/26/16 10:39 95 21 08/26/16 08:00 92 Room Air 08/26/16 08:00 56 08/26/16 07:17 96.5 56 16 114/55 92 08/26/16 05:45 55 08/26/16 03:39 97.1 55 16 103/54 95 08/26/16 00:00 95.5 58 16 118/58 96 08/25/16 20:26 96.5 58 18 113/55 95 08/25/16 18:59 Room Air 08/25/16 18:15 96 21 08/25/16 16:50 98.2 60 16 126/76 64 08/25/16 14:23 96 08/25/16 12:10 97.7 64 16 114/56 97 (Teressa Davey) CBC/BMP: 08/26/16 0455 08/26/16 0455 Lab Results Laboratory Tests Test 08/26/16 04:55 White Blood Count 12.0 TH/MM3 Red Blood Count 2.84 MIL/MM3 Hemoglobin 8.7 GM/DL Hematocrit 26.3 % Mean Corpuscular Volume 92.6 FL Mean Corpuscular Hemoglobin 30.7 PG Mean Corpuscular Hemoglobin 33.2 % Concent Red Cell Distribution Width 13.6 % Platelet Count 152 TH/MM3 Mean Platelet Volume 8.4 FL Sodium Level 142 MEQ/L Potassium Level 3.9 MEQ/L Chloride Level 107 MEQ/L Carbon Dioxide Level 24.7 MEQ/L Anion Gap 10 MEQ/L Blood Urea Nitrogen 39 MG/DL Creatinine 1.47 MG/DL Estimat Glomerular Filtration 46 ML/MIN Rate Random Glucose 81 MG/DL Calcium Level 8.5 MG/DL Imaging Remarks Last Impressions Abdomen/Pelvis CT 08/24/16 0057 Signed Impressions: Service Date/Time: August 02:32 - CONCLUSION: 1. Appendicitis. 2. 3.1 cm left renal mass potentially representing a renal cell carcinoma. 3. 2 points and air area of low-density in the left psoas muscle which may be an abscess versus an old hematoma. Jimmy Reynaga MD Current Medications Active Medications Carvedilol (Coreg) 3.125 mg BID PO; Start 08/25/16 at 21:00 Carvedilol (Coreg) 25 mg BID PO; Start 08/25/16 at 21:00; Stop 08/25/16 at 21:00 ; Status DC (Teressa Davey) Physical Exam General General Appearance: Well Developed, Well Nourished, No Acute Distress, Comfortable Appearance Remarks Up in chair (Teressa Davey) Eyes Eye Exam: Pupils Equal, Pupils Reactive, Sclera White (Teressa Davey) Ears & Nose Ears & Nose Exam: Nasal Mucosa [place] (Teressa Davey) Throat Throat Exam: Oral Mucosa [place] & Moist (Teressa Davey) Neck Neck Exam: Neck Supple (Teressa Davey) Pulmonary Resp Exam: Clear Bilaterally, Sputum (1, didn't spit up) ([place],Teressa M. WASHER REPAIRMAN) Cardiology CV Exam: Regular CV Remarks pacemaker ([place]Teressa M. WASHER REPAIRMAN) Gastrointestinal/Abdomen GI Exam: Soft, Bowel Sounds Present, Bowel Sounds Hypoactive ([place] M. WASHER REPAIRMAN) Musculoskeletal MS Exam: Joints Intact, Normal Tone, Good Strength ([place]Teressa M. WASHER REPAIRMAN) Integumentary Skin Exam: Clear, Warm, Dry, Intact ([place]ressa M. WASHER REPAIRMAN) Extremeties Extremities Exam: Trace Edema (bilateral lower legs, to 1+) ([place]Teressa M. WASHER REPAIRMAN) VTE Prophylaxis VTE Prophylaxis Device: SCDs ([place],Teressa M. WASHER REPAIRMAN) Assessment/Plan Assessment/Plan (1) Acute perforated appendicitis (2) Renal cell cancer (3) Leukocytosis (4) s/p diagnostic laparoscopy with attempted appendectomy and I/D of right lower quadrant abscess with placement of drain (5) Acute renal injury (6) Pacemaker (7) HTN (hypertension) (8) Hyperlipidemia 9. Constipation Bradycardia Assessment and Plan 86 year old male admitted with abdominal pain, found with acute perforated appendicitis. s/p diagnostic laparoscopy with attempted appendectomy and I/D of right lower quadrant abscess with placement of drain 08/24 Draining clear light, pink fluid. Monitoring amounts. I/O -continue with IVF, gentle hydration -Clear liquid diet, beginning to tolerate, will continue for the next few days, per surgical -monitor bowel function , we'll give laxative meds today to assist. Unable to go early this a.m. added M OM for today. If no results may have Dulcolax suppository. -continue empiric antibiotics, follow cultures. WBC count 12. Monitor, hemoglobin 8.7 monitor his labs. Skin color pink with good perfusion. -Pain management, minimal amount needed Monitor vital signs which include fever lead pressure pulse and respiration. Currently afebrile. BP low normals, monitor. Heart rate in the 50s, he denies any dizziness or symptoms of acute weakness. patient does have pacemaker Acute renal injury Continue with IV fluids Monitor renal function, continues with acute kidney injury, but no acute changes noted with labs. Monitor Left renal mass per CT findings -Follow up with Dr. Cortes as OP for further work up. CAD, hx CABG -Resume carvedilol Hold aspirin for now Hypertension, blood pressure running low 100s Hold antihypertensive agents for now SCDs for DVT prophylaxis PPI for GI prophylaxis Labs in am Plan of care discussed with the patient, attending and registered nurse. Further management of the patient will be dependent on the hospital course This patient was seen by myself and Dr. Carson, Diccussed with Dr. Carson Problem Qualifiers Discussed Condition with: Patient (supportive care) Discussed Condition Comment D/W Dr. carson, patient seen on her behalf (Teressa Davey) Assessment/Plan patient seen and examined more pain today passing some gas on CLD add po dilaudid continue current care discussed with patient discussed with Teressa RODRIGUEZ discussed with nursing staff (Kiersten Carson MD) Teressa Davey Aug 26, 2016 12:12 Kiersten Carson MD Aug 26, 2016 15:58
[2016-08-26] MEDS ORDERED: BISACODYL 10 MG SUPP RECTAL PRN (12:15)
[2016-08-26] MEDS ORDERED: MAGNESIUM HYDROXIDE SUSP 30 ML CUP PO ONE (12:30)
[2016-08-26] MEDS ORDERED: PILL SPLITTER OTHER PRN (15:45)
[2016-08-26] MEDS: HYDROmorphone HCL 2 MG TAB PO PRN ×2 (15:56→22:28)
[2016-08-26] MEDS: MAGNESIUM HYDROXIDE SUSP 30 ML CUP PO PRN (20:32)
--- NOTE | 2016-08-26 22:56 | HHI.PR ---
Subjective Subjective Notes no pain, feels better, tolerating PO Objective Vitals/I&O Vital Signs Date Time Temp Pulse Resp B/P Pulse Ox O2 Delivery O2 Flow Rate FiO2 08/26/16 21:42 92 08/26/16 20:00 98.0 54 16 101/54 08/26/16 19:44 Room Air 08/26/16 10:39 21 08/24/16 14:00 2 Labs Laboratory Tests Test 08/26/16 04:55 White Blood Count 12.0 Red Blood Count 2.84 Hemoglobin 8.7 Hematocrit 26.3 Mean Corpuscular Volume 92.6 Mean Corpuscular Hemoglobin 30.7 Mean Corpuscular Hemoglobin 33.2 Concent Red Cell Distribution Width 13.6 Platelet Count 152 Mean Platelet Volume 8.4 Sodium Level 142 Potassium Level 3.9 Chloride Level 107 Carbon Dioxide Level 24.7 Anion Gap 10 Blood Urea Nitrogen 39 Creatinine 1.47 Estimat Glomerular Filtration 46 Rate Random Glucose 81 Calcium Level 8.5 Date/Time Procedure Status Source Growth 08/24/16 03:05 Aerobic Blood Culture - Preliminary Resulted Blood Peripheral NO GROWTH IN 2 DAYS 08/24/16 03:05 Anaerobic Blood Culture - Preliminary Resulted Blood Peripheral NO GROWTH IN 2 DAYS Abdomen: Non-distended, Non-tender Narrative Exam drain with serous fluid A/P Assessment and Plan 86yo male s/p lap appy for perforated appendicitis, stable. tolerating diet AF, VSS pain ok OOB continue ABX advance diet slowly Nimesh Samuels MD Aug 26, 2016 22:56
[2016-08-27] VITALS (9 sets, daily range): BP systolic 116–146; BP diastolic 55–69; PULSE 54–63; RESP 16–18; TEMP 96.4–97.8; O2SAT 92–97
[2016-08-27] MEDS: LACTATED RINGER'S 1000 ML INJ 1,000 ML IV SCH ×2 (06:26→20:42)
[2016-08-27] MEDS: SODIUM CHLORIDE 0.9% FLUSH 5 ML FLUSH IV FLUSH SCH ×2 (08:44→20:44)
[2016-08-27] MEDS: PIPERACIL-TAZO 3.375 GM PREMIX 50 ML IV SCH ×3 (08:44→23:56)
[2016-08-27] MEDS: CARVEDILOL 3.125 MG TAB PO SCH ×2 (08:44→20:43)
[2016-08-27] MEDS: PANTOPRAZOLE SODIUM 40 MG VIAL IV SCH (08:44)
[2016-08-27] MEDS: HYDROmorphone HCL 2 MG TAB PO PRN (08:47)
--- NOTE | 2016-08-27 09:38 | HHI.PR ---
Subjective Subjective Remarks had small BM passing gas some pain this morning tolerating clear well, no n/v no fever no cp no sob no acute changes overnight (Brittany Min) Review of Systems Constitutional Constitutional Remarks 12 point ROS completed, neg. except as noted above (Brittany Min) Vitals/Results Intake & Output 08/26/16 08/26/16 08/27/16 15:00 23:00 07:00 Intake Total 1452 ml 1131 ml 240 ml Output Total 90 ml 340 ml 20 ml Balance 1362 ml 791 ml 220 ml Intake Oral 600 ml 480 ml 240 ml IV Total 852 ml 651 ml Output Urine Total 300 ml Drainage Total 90 ml 40 ml 20 ml # Voids 4 1 # Bowel Movements 0 1 Vital Signs Vital Signs Date Time Temp Pulse Resp B/P Pulse Ox O2 Delivery O2 Flow Rate FiO2 08/27/16 04:00 97.7 57 16 116/55 95 08/27/16 01:21 54 08/27/16 00:00 97.6 58 18 116/66 95 08/26/16 21:42 92 08/26/16 20:00 98.0 54 16 101/54 95 08/26/16 19:44 Room Air 08/26/16 16:00 62 08/26/16 15:39 98.4 62 16 121/58 94 08/26/16 11:40 96.9 57 16 129/59 94 08/26/16 10:39 95 21 (Brittany Min) CBC/BMP: 08/26/16 0455 08/26/16 0455 Physical Exam General General Appearance: Well Developed, Well Nourished, No Acute Distress, Comfortable (Brittany Min) Eyes Eye Exam: Pupils Equal, Pupils Reactive, Sclera White (Brittany MinP) Ears & Nose Ears & Nose Exam: Nasal Mucosa [place] (Brittany Min) Throat Throat Exam: Oral Mucosa [place] & Moist (Brittany Min) Neck Neck Exam: Neck Supple (Brittany Min) Pulmonary Resp Exam: Decreased Bases (Brittany Min) Cardiology CV Exam: Regular (Brittany Min) Gastrointestinal/Abdomen GI Exam: Soft, Bowel Sounds Present, Non-Distended GI Remarks Abdomen with lower abd. incision and dressing, minimal serous drainage DANO with minimal drainage (Brittany Min) Musculoskeletal MS Exam: Joints Intact, Normal Tone, Good Strength (Brittany Min) Integumentary Skin Exam: Clear, Warm, Dry, Intact (Brittany Min) Extremeties Extremities Exam: Pedal Pulses Palpable, Trace Edema (bilateral lower legs, to 1+) (Brittany Min) Neurologic Neuro Exam: Alert, Awake, Oriented, Speech Clear, Moving All Extremities, No Focal Deficits (Brittany Min) VTE Prophylaxis VTE Prophylaxis Device: SCDs (Brittany Min) Assessment/Plan Problem List: (1) Acute perforated appendicitis (2) s/p diagnostic laparoscopy with attempted appendectomy and I/D of right lower quadrant abscess with placement of drain (3) Renal cell cancer (4) Acute renal injury (5) Leukocytosis (6) HTN (hypertension) (7) Pacemaker (8) Hyperlipidemia Assessment/Plan 86 year old male admitted with abdominal pain, found with acute perforated appendicitis. s/p diagnostic laparoscopy with attempted appendectomy and I/D of right lower quadrant abscess with placement of drain 08/24 -continue with IVF, gentle hydration -Clear liquid diet, to be adv per surgery, tolerating well, had small BM -Bowel regimen, had small BM -continue empiric antibiotics, follow cultures. Cultures negative so far -Pain management, minimal amount needed Acute renal injury-no change. Likely some CKD, continues to make urine Continue with IV fluids Monitor renal function Left renal mass per CT findings -Follow up with Dr. Cortes as OP for further work up. CAD, hx CABG -Continue carvedilol Hold aspirin for now Hypertension, blood pressure stable, 110s Continue Carvedilol low dose Anemia -Hgb 8.7 -monitor CBC -check iron stores SCDs for DVT prophylaxis PPI for GI prophylaxis Labs in am D/W RN D/W D/W pt This patient was seen by myself and Dr. Carson, this note is written on her behalf. (rBittany Min) Assessment/Plan Patient seen and examined 2 BMs pain controlled agree with above assessment and plan monitor CBC and renal function outpatient follow up with Dr Cortes discussed with patient discussed with Brittany RODRIGUEZ (Kiersten Carson MD) Problem Qualifiers (1) Renal cell cancer: Qualified Code: C64.2 - Renal cell cancer, left (2) Leukocytosis: Qualified Code: D72.829 - Leukocytosis, unspecified type (3) HTN (hypertension): Qualified Code: I10 - Essential hypertension (4) Hyperlipidemia: Qualified Code: E78.5 - Hyperlipidemia, unspecified hyperlipidemia type Brittany Min Aug 27, 2016 09:37 Kiersten Carson MD Aug 27, 2016 16:11
--- NOTE | 2016-08-27 13:03 | HHI.PR ---
Subjective Subjective Notes DAILY PROGRESS NOTE FOR SURGICAL ATTENDING, DR. CHANNING DAWSON Tolerating full liquids Objective Vitals/I&O Vital Signs Date Time Temp Pulse Resp B/P Pulse Ox O2 Delivery O2 Flow Rate FiO2 08/27/16 12:10 97 08/27/16 11:44 96.6 59 16 122/59 08/26/16 19:44 Room Air 08/26/16 10:39 21 08/24/16 14:00 2 Labs Date/Time Procedure Status Source Growth 08/24/16 03:05 Aerobic Blood Culture - Preliminary Resulted Blood Peripheral NO GROWTH IN 3 DAYS 08/24/16 03:05 Anaerobic Blood Culture - Preliminary Resulted Blood Peripheral NO GROWTH IN 3 DAYS Radiology Last Impressions Abdomen/Pelvis CT 08/24/16 0057 Signed Impressions: Service Date/Time: August 02:32 - CONCLUSION: 1. Appendicitis. 2. 3.1 cm left renal mass potentially representing a renal cell carcinoma. 3. 2 points and air area of low-density in the left psoas muscle which may be an abscess versus an old hematoma. Jimmy Reynaga MD Abdomen: Non-distended, Other (DANO in place serosanguineous drainage) Wound Wound : Wound Location: Abdomen (laparoscopic scars healing bandage intact) Appearance: Clean & Dry Drainage: Clear (serosanguineous) A/P Problem List: (1) s/p diagnostic laparoscopy with attempted appendectomy and I/D of right lower quadrant abscess with placement of drain (2) Status post laparoscopic appendectomy (3) Acute perforated appendicitis (4) HTN (hypertension) (5) Pacemaker Assessment and Plan 86 old gentleman status post laparoscopic appendectomy for perforated appendicitis Changed to by mouth narcotics Advance diet as tolerated Anticipate discharged in 24-48 hours Problem Qualifiers (1) HTN (hypertension): Qualified Code: I10 - Essential hypertension Channing Dawson MD Aug 27, 2016 13:03
[2016-08-27] MEDS: HYDROcodone/IBUPROFEN 7.5MG/200MG TAB PO PRN ×2 (17:17→23:56)
[2016-08-28] VITALS (7 sets, daily range): BP systolic 116–167; BP diastolic 56–71; PULSE 53–62; RESP 16–18; TEMP 96.2–97.3; O2SAT 91–97
[2016-08-28 07:04] LABS: HEMATOCRIT 27.4 % (39.0-51.0); MEAN CORPUSCULAR HEMOGLOBIN 31.2 PG (27.0-34.0); MEAN CORPUSCULAR HGB CONC 33.9 % (32.0-36.0); PLATELET COUNT 166 TH/MM3 (150-450); RED BLOOD COUNT 2.98 MIL/MM3 (4.50-5.90); RED CELL DISTRIBUTION WIDTH 13.4 % (11.6-17.2); REVIEW FLAG FINAL; WHITE BLOOD COUNT 7.3 TH/MM3 (4.0-11.0)
[2016-08-28 07:10] LABS: REVIEW FLAG FINAL
[2016-08-28] MEDS: SODIUM CHLORIDE 0.9% FLUSH 5 ML FLUSH IV FLUSH SCH ×2 (07:36→22:42)
[2016-08-28] MEDS: MAGNESIUM HYDROXIDE SUSP 30 ML CUP PO PRN (07:36)
[2016-08-28] MEDS: CARVEDILOL 3.125 MG TAB PO SCH ×2 (07:36→22:38)
[2016-08-28] MEDS: HYDROcodone/IBUPROFEN 7.5MG/200MG TAB PO PRN ×3 (07:37→22:39)
[2016-08-28] MEDS: PANTOPRAZOLE SOD 20 MG DELAYED RELEASE TAB PO SCH (07:37)
[2016-08-28] MEDS: PIPERACIL-TAZO 3.375 GM PREMIX 50 ML IV SCH (07:38)
[2016-08-28 08:02] LABS: ANION GAP 7 MEQ/L (5-15); BICARBONATE 28.3 MEQ/L (21.0-32.0); BLOOD UREA NITROGEN 20 MG/DL (7-18); CHLORIDE 107 MEQ/L (98-107); FERRITIN 295 NG/ML (26-388); GLOMERULAR FILTRATION RATE 60 ML/MIN (>89); POTASSIUM 3.2 MEQ/L (3.5-5.1); SODIUM (NA) 142 MEQ/L (136-145); TRANSFERRIN IRON PROFILE 120 MG/DL (200-360)
--- NOTE | 2016-08-28 10:40 | HHI.PR ---
Subjective Subjective Notes Resting in bed Very pleased with recovery process from surgery Objective Vitals/I&O Vital Signs Date Time Temp Pulse Resp B/P Pulse Ox O2 Delivery O2 Flow Rate FiO2 08/28/16 09:03 60 08/28/16 07:43 Room Air 08/28/16 07:35 97.3 17 133/66 91 08/26/16 10:39 21 08/24/16 14:00 2 Labs Laboratory Tests Test 08/28/16 06:37 White Blood Count 7.3 Red Blood Count 2.98 Hemoglobin 9.3 Hematocrit 27.4 Mean Corpuscular Volume 92.0 Mean Corpuscular Hemoglobin 31.2 Mean Corpuscular Hemoglobin 33.9 Concent Red Cell Distribution Width 13.4 Platelet Count 166 Mean Platelet Volume 7.9 Reticulocyte Count 1.0 Absolute Reticulocyte Count 28.9 Sodium Level 142 Potassium Level 3.2 Chloride Level 107 Carbon Dioxide Level 28.3 Anion Gap 7 Blood Urea Nitrogen 20 Creatinine 1.16 Estimat Glomerular Filtration 60 Rate Random Glucose 97 Calcium Level 7.9 Iron Level 25 Total Iron Binding Capacity 168 Percent Iron Saturation 14.9 Ferritin 295 Vitamin B12 Level 555 Date/Time Procedure Status Source Growth 08/24/16 03:05 Aerobic Blood Culture - Preliminary Resulted Blood Peripheral NO GROWTH IN 3 DAYS 08/24/16 03:05 Anaerobic Blood Culture - Preliminary Resulted Blood Peripheral NO GROWTH IN 3 DAYS Radiology Last Impressions Abdomen/Pelvis CT 08/24/16 0057 Signed Impressions: Service Date/Time: August 02:32 - CONCLUSION: 1. Appendicitis. 2. 3.1 cm left renal mass potentially representing a renal cell carcinoma. 3. 2 points and air area of low-density in the left psoas muscle which may be an abscess versus an old hematoma. Jimmy Reynaga MD Cardiovascular: Regular Lungs: Clear Abdomen: Other (lap sites c/d/i; DANO with SS drainage ---minimal ) Extremities: No edema A/P Problem List: (1) s/p diagnostic laparoscopy with attempted appendectomy and I/D of right lower quadrant abscess with placement of drain (2) Status post laparoscopic appendectomy (3) Acute perforated appendicitis (4) HTN (hypertension) (5) Pacemaker Assessment and Plan 86 year old male POD4 lap appy; perforated -WBC now normal -DC Zosyn; add PO Cipro/Flagyl -Tolerating regular diet -OOB and mobilize -Replace K -Appreciate Hospitalist consult I certify and attest that I personally examined this patient and reviewed her findings in the EMR. Ms Wagner is documenting our encounter on my behalf and entered orders under my direct supervision. I discussed our recommendations with the patient and family at the bedside. I also discussed our encounter with the nursing staff present. KELSIE ROSENBERG MD FACS Problem Qualifiers (1) HTN (hypertension): Qualified Code: I10 - Essential hypertension Alexsandra Wagner [facility] Aug 28, 2016 10:40 Kelsie Rosenberg MD Sep 01, 2016 10:38
[2016-08-28] MEDS ORDERED: POTASSIUM CL 40 MEQ/30 ML LIQ UDC PO ONE (10:45)
--- NOTE | 2016-08-28 11:46 | HHI.FF ---
Face to Face Verification Diagnosis: (1) Acute perforated appendicitis (2) Renal cell cancer (3) Hyperlipidemia (4) Leukocytosis (5) HTN (hypertension) (6) Pacemaker (7) Acute renal injury (8) s/p diagnostic laparoscopy with attempted appendectomy and I/D of right lower quadrant abscess with placement of drain (9) Status post laparoscopic appendectomy Physical Therapy Order: Evaluate and Treat Home Health Nursing Order: Medical education Signs/symptoms of disease process Nursing assessment with vital signs Telephone Sales Representative Order: To Evaluate: Support services I have seen patient Louis Gary on 08/28/16. My clinical findings support the need for the requested home health care services because: Deconditioned w/ increased weakness I certify that my clinical findings support that this patient is homebound because: Need for psychosocial assistance Brittany Min Aug 28, 2016 11:45
--- NOTE | 2016-08-28 11:50 | HHI.PR ---
Subjective Subjective Remarks minimal pain no cp no sob no fever had BM no n/v eating okay feels that he needs one more day in hospital moving around room better has had HHC due to recent hip repair Review of Systems Constitutional Constitutional Remarks 12 point ROS completed, neg. except as noted above Vitals/Results Intake & Output 08/27/16 08/27/16 08/28/16 15:00 23:00 07:00 Intake Total 1200 ml 480 ml 240 ml Output Total 60 ml 20 ml 5 ml Balance 1140 ml 460 ml 235 ml Intake Oral 1200 ml 480 ml 240 ml Drainage Total 60 ml 20 ml 5 ml # Voids 4 2 1 # Bowel Movements 1 0 0 Vital Signs Vital Signs Date Time Temp Pulse Resp B/P Pulse Ox O2 Delivery O2 Flow Rate FiO2 08/28/16 09:03 60 08/28/16 07:43 Room Air 08/28/16 07:35 97.3 59 17 133/66 91 08/28/16 03:50 96.3 53 17 135/63 92 08/28/16 00:05 96.2 60 18 116/56 93 08/27/16 20:42 56 08/27/16 20:30 97.8 63 17 146/69 93 08/27/16 15:46 97.7 57 16 118/58 94 08/27/16 12:10 97 CBC/BMP: 08/28/16 0637 08/28/16 0637 Lab Results Laboratory Tests Test 08/28/16 06:37 White Blood Count 7.3 TH/MM3 Red Blood Count 2.98 MIL/MM3 Hemoglobin 9.3 GM/DL Hematocrit 27.4 % Mean Corpuscular Volume 92.0 FL Mean Corpuscular Hemoglobin 31.2 PG Mean Corpuscular Hemoglobin 33.9 % Concent Red Cell Distribution Width 13.4 % Platelet Count 166 TH/MM3 Mean Platelet Volume 7.9 FL Reticulocyte Count 1.0 % Absolute Reticulocyte Count 28.9 MIL/L Sodium Level 142 MEQ/L Potassium Level 3.2 MEQ/L Chloride Level 107 MEQ/L Carbon Dioxide Level 28.3 MEQ/L Anion Gap 7 MEQ/L Blood Urea Nitrogen 20 MG/DL Creatinine 1.16 MG/DL Estimat Glomerular Filtration 60 ML/MIN Rate Random Glucose 97 MG/DL Calcium Level 7.9 MG/DL Iron Level 25 MCG/DL Total Iron Binding Capacity 168 MCG/DL Percent Iron Saturation 14.9 % Ferritin 295 NG/ML Vitamin B12 Level 555 PG/ML Physical Exam General General Appearance: Well Developed, Well Nourished, No Acute Distress, Comfortable Eyes Eye Exam: Pupils Equal, Pupils Reactive, Sclera White Ears & Nose Ears & Nose Exam: Nasal Mucosa [place] Throat Throat Exam: Oral Mucosa [place] & Moist Neck Neck Exam: Neck Supple Pulmonary Resp Exam: Decreased Bases Cardiology CV Exam: Regular Gastrointestinal/Abdomen GI Exam: Soft, Bowel Sounds Present, Non-Distended GI Remarks Abdomen with lower abd. incision and dressing, minimal serous drainage DANO with minimal drainage Musculoskeletal MS Exam: Joints Intact, Normal Tone, Good Strength Integumentary Skin Exam: Clear, Warm, Dry, Intact Extremeties Extremities Exam: Pedal Pulses Palpable, Trace Edema (bilateral lower legs, to 1+) Neurologic Neuro Exam: Alert, Awake, Oriented, Speech Clear, Moving All Extremities, No Focal Deficits VTE Prophylaxis VTE Prophylaxis Device: SCDs Assessment/Plan Problem List: (1) Acute perforated appendicitis (2) s/p diagnostic laparoscopy with attempted appendectomy and I/D of right lower quadrant abscess with placement of drain (3) Renal cell cancer (4) Acute renal injury (5) Leukocytosis (6) HTN (hypertension) (7) Pacemaker (8) Hyperlipidemia Assessment/Plan 86 year old male admitted with abdominal pain, found with acute perforated appendicitis. s/p diagnostic laparoscopy with attempted appendectomy and I/D of right lower quadrant abscess with placement of drain 08/24 -DC IVF -Regular diet -Bowel regimen -hanged to PO abx, cultures negative -Pain management, minimal amount needed -Doing well, afebrile, tolerating diet. Acute renal injury, improved. DC IVF Monitor renal function-better today -K replacement Left renal mass per CT findings -Follow up with Dr. Cortes as OP for further work up. CAD, hx CABG -Continue carvedilol Resume ASA Hypertension, blood pressure stable, 110s Continue Carvedilol low dose Anemia -Hgb 9 -monitor CBC -Low iron stores SCDs for DVT prophylaxis PPI for GI prophylaxis CM for DC planning, resume C PT for eval and tx hopefully home tomorrow once cleared by surgery Pt. doing remarkably well D/W RN D/W D/W pt This patient was seen by myself and Dr. Alli, this note is written on her behalf. Problem Qualifiers (1) Renal cell cancer: Qualified Code: C64.2 - Renal cell cancer, left (2) Leukocytosis: Qualified Code: D72.829 - Leukocytosis, unspecified type (3) HTN (hypertension): Qualified Code: I10 - Essential hypertension (4) Hyperlipidemia: Qualified Code: E78.5 - Hyperlipidemia, unspecified hyperlipidemia type Brittany Min Aug 28, 2016 11:50
[2016-08-28] MEDS: metroNIDAZOLE 500 MG TAB PO SCH ×2 (15:13→22:39)
[2016-08-28] MEDS: CIPROFLOXACIN 500 MG TAB PO SCH (22:39)
[2016-08-29 00:40] VITALS: BP 125/65; PULSE 54; RESP 16; TEMP 96.6; O2SAT 93
[2016-08-29 04:00] VITALS: BP 134/72; PULSE 87; RESP 17; TEMP 97; O2SAT 93
[2016-08-29] MEDS: metroNIDAZOLE 500 MG TAB PO SCH (06:09)
[2016-08-29 08:00] VITALS: BP 143/74; PULSE 58; RESP 18; TEMP 96.6; O2SAT 93
[2016-08-29] MEDS: PANTOPRAZOLE SOD 20 MG DELAYED RELEASE TAB PO SCH (08:43)
[2016-08-29] MEDS: CIPROFLOXACIN 500 MG TAB PO SCH (08:44)
[2016-08-29] MEDS: SODIUM CHLORIDE 0.9% FLUSH 5 ML FLUSH IV FLUSH SCH (08:44)
[2016-08-29] MEDS: CARVEDILOL 3.125 MG TAB PO SCH (08:44)
[2016-08-29] MEDS: HYDROcodone/IBUPROFEN 7.5MG/200MG TAB PO PRN (08:46)
[2016-08-29 12:00] VITALS: BP 123/65; PULSE 53; RESP 18; TEMP 97.1; O2SAT 96
--- NOTE | 2016-08-29 12:14 | HHI.PR ---
Subjective Subjective Remarks Alert talkative cooperative Up in chair Soreness left lower quadrant, improving daily BM X 2 today. Appetite good today Review of Systems Constitutional Constitutional: Weakness (generalized but improving) Constitutional Remarks 10 point ROS done systems negative or unremarkable except for abdominal incision mild soreness but improving GI/Abdomen GI/Abdomen Remarks Left lower quadrant soreness Improving Vitals/Results Intake & Output 08/28/16 08/28/16 08/29/16 15:00 23:00 07:00 Intake Total 960 ml 240 ml 480 ml Balance 960 ml 240 ml 480 ml Intake Oral 960 ml 240 ml 480 ml # Voids 4 1 2 # Bowel Movements 1 0 0 Vital Signs Vital Signs Date Time Temp Pulse Resp B/P Pulse Ox O2 Delivery O2 Flow Rate FiO2 08/29/16 08:00 96.6 58 18 143/74 93 08/29/16 04:00 97.0 87 17 134/72 93 08/29/16 00:40 96.6 54 16 125/65 93 08/28/16 20:55 97.0 60 16 122/67 94 08/28/16 15:54 96.2 62 17 167/71 97 CBC/BMP: 08/28/16 0637 08/28/16 0637 Current Medications Active Medications Ciprofloxacin (Cipro) 500 mg Q12HR PO Last administered on 08/29/16 08:44; Admin Dose 500 MG; Start 08/28/16 at 21:00 Metronidazole (Flagyl) 500 mg Q8HR PO Last administered on 08/29/16 06:09; Admin Dose 500 MG; Start 08/28/16 at 14:00 Physical Exam General General Appearance: Well Developed, Well Nourished, No Acute Distress, Comfortable Appearance Remarks Up in chair Eyes Eye Exam: Pupils Equal, Pupils Reactive, Sclera White Ears & Nose Ears & Nose Exam: Nasal Mucosa [place] Throat Throat Exam: Oral Mucosa [place] & Moist Neck Neck Exam: Neck Supple Pulmonary Resp Exam: Decreased Bases Cardiology CV Exam: Regular CV Remarks pacemaker Gastrointestinal/Abdomen GI Exam: Soft, Bowel Sounds Present, Non-Distended GI Remarks Post postop abdomen. Umbilicus without erythema or edema. Drain out Musculoskeletal MS Exam: Joints Intact, Normal Tone, Good Strength Integumentary Skin Exam: Clear, Warm, Dry, Intact Extremeties Extremities Exam: Pedal Pulses Palpable, Trace Edema (bilateral lower legs, to 1+) Neurologic Neuro Exam: Alert, Awake, Oriented, Speech Clear, Moving All Extremities, No Focal Deficits VTE Prophylaxis VTE Prophylaxis Device: SCDs Assessment/Plan Problem List: (1) Acute perforated appendicitis (2) s/p diagnostic laparoscopy with attempted appendectomy and I/D of right lower quadrant abscess with placement of drain (3) Renal cell cancer (4) Acute renal injury (5) Leukocytosis (6) HTN (hypertension) (7) Pacemaker (8) Hyperlipidemia Assessment/Plan 86 year old male admitted with abdominal pain, found with acute perforated appendicitis. s/p diagnostic laparoscopy with attempted appendectomy and I/D of right lower quadrant abscess with placement of drain 08/24 -Regular diet , appetite improving patient states that he's actually hungry today -Bowel regimen, BMs 2 today without any issues -changed to PO abx, cultures negative -Pain management, minimal amount needed -Doing well, afebrile, tolerating diet. Acute renal injury, improved. DC IVF Monitor renal function-better today -K replacement today K3.2 on 08-[address] Left renal mass per CT findings -Follow up with Dr. Cortes as OP for further work up. CAD, hx CABG -Continue carvedilol Resume ASA Hypertension, blood pressure stable, 110s Continue Carvedilol low dose Anemia -Hgb 9 -monitor CBC -Low iron stores SCDs for DVT prophylaxis PPI for GI prophylaxis Discharge today , resume HHC. Clear cleared per surgery PT for eval and tx during hospital stay. Ambulated around hallway today without any acute distress Pt. doing remarkably well D/W RN and discussed potassium dose needed before discharge D/W D/W pt This patient was seen by myself and Dr. Carson, this note is written on her behalf. Problem Qualifiers (1) Renal cell cancer: Qualified Code: C64.2 - Renal cell cancer, left (2) Leukocytosis: Qualified Code: D72.829 - Leukocytosis, unspecified type (3) HTN (hypertension): Qualified Code: I10 - Essential hypertension (4) Hyperlipidemia: Qualified Code: E78.5 - Hyperlipidemia, unspecified hyperlipidemia type Teressa Davey Aug 29, 2016 12:14
[2016-08-29] MEDS ORDERED: POTASSIUM CL 40 MEQ/30 ML LIQ UDC PO ONE (13:00)
--- NOTE | 2016-09-19 12:09 | HHI.DS ---
Discharge Summary Admission Date Aug 24, 2016 at 03:18 Discharge Date: Aug 29, 2016 Admitting Diagnosis perforated appendicitis, renal cell carcinoma (1) s/p diagnostic laparoscopy with attempted appendectomy and I/D of right lower quadrant abscess with placement of drain (2) Status post laparoscopic appendectomy (3) Acute perforated appendicitis (4) HTN (hypertension) (5) Pacemaker Brief History 86 year old male s/p lap appy; perforated PE at Discharge Alert and awake Cardio: RRR Resp: CTAB Abd: lap sites c/d/i; drain DCed Hospital Course This is an 86 year old male s/p lap appy; perforated. The patient's diet was advanced as tolerated. He was transition to PO antibiotics. He was able to ambulate out of bed. His pain was controlled with oral pain medications. He will continue antibiotics tablets for one week. He was follow up in the office with Dr. Rosas. Pt Condition on Discharge: Good Discharge Disposition: Discharge Home Discharge Instructions DIET: Follow Instructions for: As Tolerated, No Restrictions Activities you can perform: See Additionl Instruction Other Activity Instructions: Okay to shower; pat incision dry Alexsandra Wagner Sep 19, 2016 12:09
== END 2016-08-29 13:20 | disposition home or self-care (01) | DRG 339 ==
LOC: PHED 00:26 → PHEDA 03:18 → N06A 05:54
PROVIDERS: ADMIT Surgery Trauma Surgery; ATTEND Surgery Trauma Surgery
PROC: 0W9G4ZZ Drainage of Peritoneal Cavity, Percutaneous Endoscopic Approach (ICD-10-PCS; 2016-08-24)
PROC: 0DBJ4ZZ Excision of Appendix, Percutaneous Endoscopic Approach (ICD-10-PCS; principal; 2016-08-24 11:20)
DX: K35.3 Acute appendicitis with localized peritonitis (principal); N17.9 Acute kidney failure, unspecified; C64.2 Malignant neoplasm of left kidney, except renal pelvis; D64.9 Anemia, unspecified; I10 Essential (primary) hypertension; E78.5 Hyperlipidemia, unspecified; Z95.1 Presence of aortocoronary bypass graft; I25.10 Atherosclerotic heart disease of native coronary artery without angina pectoris; Z95.0 Presence of cardiac pacemaker; K59.00 Constipation, unspecified
CPT/HCPCS: 74177; 76937; 80048; 80053; 81001; 82607; 82728; 83540; 83550; 83605; 83690; 85025; 85027; 85044; 87040; 93005; 96361; 96374; 96375; C9113; J1100; J1885; J2250; J2270; J2405; J2543; J2710; J3010; J7030; J7120; Q9967

== ENCOUNTER 2016-11-02 06:11 | Day surgery (SDC) | payer MEDICARE, BC ==
[2016-11-02] VITALS (8 sets, daily range): BP systolic 110–150; BP diastolic 56–93; PULSE 50–67; RESP 16–20; TEMP 97.6–97.7; O2SAT 54–98
[~2016-11-02] VITALS: Ht 175.3 cm; Wt 77.3 kg
[~2016-11-02 06:11] MED LIST changes: +ASPI81CH CHEW; -ASPI81TA82 PO; -CARV12.52 PO; +CARV25TA PO; -CENTTAB9 PO; -HCTZ50TA PO; +MULT-135 PO; +OMEP40CA2 PO; +TRIA37.53 PO; -ZOCO40TA PO
[2016-11-02] MEDS ORDERED: SIMV40TA PO (06:41)
[2016-11-02] MEDS ORDERED: SODIUM CHLORIDE FLUSH PRN IV FLUSH (07:00)
[2016-11-02] MEDS ORDERED: SODIUM CHLOR 0.9% 1000 ML INJ 1,000 ML IV SCH (07:00)
[2016-11-02] MEDS ORDERED: MIDAZOLAM HCL 5 MG/5 ML VIAL ONE (07:29)
[2016-11-02] MEDS ORDERED: fentaNYL CITRATE 250 MCG/5 ML AMP ONE (07:29)
[2016-11-02] MEDS ORDERED: LIDOCAINE 1%/EPINEPHrine 1:100,000 SOLN 20 ML VIAL ONE (07:46)
[2016-11-02] MEDS ORDERED: SODIUM CHLORIDE FLUSH BID IV FLUSH SCH (09:00)
[2016-11-02] MEDS ORDERED: HYDROmorphone HCL 2 MG TAB PO PRN (09:30)
[2016-11-02 09:52] LABS: AUTOMATED NEUTROPHIL # 3.4 TH/MM3 (1.8-7.7); BASOPHIL % 0.5 % (0.0-2.0); EOSINOPHIL # 0.1 TH/MM3 (0-0.4); EOSINOPHIL % 1.9 % (0.0-4.0); HEMATOCRIT 35.4 % (39.0-51.0); HEMO FLAGS DIFF FINAL; LYMPH % 29.9 % (9.0-44.0); LYMPHOCYTE # 1.7 TH/MM3 (1.0-4.8); MEAN CELL VOLUME 93.8 FL (80.0-100.0); MEAN CORPUSCULAR HEMOGLOBIN 31.5 PG (27.0-34.0); MEAN CORPUSCULAR HGB CONC 33.6 % (32.0-36.0); MONO % 6.7 % (0.0-8.0); PLATELET COUNT 118 TH/MM3 (150-450); RED BLOOD COUNT 3.77 MIL/MM3 (4.50-5.90); RED CELL DISTRIBUTION WIDTH 14.4 % (11.6-17.2); WHITE BLOOD COUNT 5.7 TH/MM3 (4.0-11.0)
--- NOTE | 2016-11-02 10:24 | RADRPT ---
EXAM DATE/TIME: 11/02/2016 07:58 [facility] COMPARISON: CT ABDOMEN & PELVIS W CONTRAST, August 24, 2016, 2:32. INDICATIONS : Left renal mass SEDATION TIME: 30 minutes BIOPSY SITE: Left kidney MEDICATION(S): 1.) 2.5 mg midazolam (Versed) IV 2.) 125 mcg fentanyl (Sublimaze) IV DEVICE(S): 1.) 18 gauge Temno core biopsy needle 2.) 17 gauge introducer MEDICAL HISTORY : None. SURGICAL HISTORY : Appendectomy. Pacemaker. ENCOUNTER: Initial ACUITY: 1 day PAIN SCORE: 4/10 LOCATION: Left flank A total of three core specimen(s) were obtained and sent to the laboratory for pathologic evaluation. PROCEDURE: 1. CT guided renal biopsy. Prior to the procedure informed consent was obtained. The patient's prior CT examinations were review ed. Using automated exposure control and adjustment of the mA and/or kV according to patient size, radiat ion dose was kept as low as reasonably achievable to obtain optimal diagnostic quality images. The site was prepped in a sterile fashion. Full sterile technique was used, including cap, mask, eliezer rile gloves and gown and a large sterile sheet. Hand hygiene and 2% chlorhexidine and/or betadine/al cohol prep was utilized per protocol for cutaneous antisepsis. The skin and subcutaneous tissues wer e infiltrated with local anesthetic solution. With CT guidance the left lower pole renal mass was localized. Biopsy was performed using the prescri bed needle as above. Adequate hemostasis was obtained with compression at the puncture site. Follow-up CT scan reveals mild to moderate perinephric hemorrhage. The patient tolerated the procedure well and there were no complications. The patient was returned to the Radiology Outpatient Unit in stable condition. CONCLUSION: Uncomplicated CT guided biopsy of the left lower pole renal mass. There is perinephric hemorrhage adj acent to the lesion. Jimmy Courtney MD on November 02, 2016 at 10:21 Board Certified Radiologist. This report was verified electronically.
[2016-11-02 11:47] LABS: AUTOMATED NEUTROPHIL # 2.8 TH/MM3 (1.8-7.7); BASOPHIL % 0.4 % (0.0-2.0); EOSINOPHIL # 0.1 TH/MM3 (0-0.4); EOSINOPHIL % 2.5 % (0.0-4.0); HEMO FLAGS DIFF FINAL; LYMPH % 33.1 % (9.0-44.0); LYMPHOCYTE # 1.6 TH/MM3 (1.0-4.8); MEAN CELL VOLUME 93.9 FL (80.0-100.0); MEAN CORPUSCULAR HEMOGLOBIN 30.6 PG (27.0-34.0); MEAN CORPUSCULAR HGB CONC 32.6 % (32.0-36.0); MONO % 6.3 % (0.0-8.0); NEUT % 57.7 % (16.0-70.0); PLATELET COUNT 113 TH/MM3 (150-450); RED BLOOD COUNT 3.72 MIL/MM3 (4.50-5.90); RED CELL DISTRIBUTION WIDTH 14.4 % (11.6-17.2); WHITE BLOOD COUNT 4.8 TH/MM3 (4.0-11.0)
== END 2016-11-02 13:10 | disposition home or self-care (01) ==
LOC: HRAD 06:11 → HRIP 06:24 → HRAD 13:10
PROVIDERS: ATTEND Urology
DX: C64.2 Malignant neoplasm of left kidney, except renal pelvis (principal); I10 Essential (primary) hypertension; I25.2 Old myocardial infarction; N40.0 Benign prostatic hyperplasia without lower urinary tract symptoms; K76.9 Liver disease, unspecified; Z01.818 Encounter for other preprocedural examination
CPT/HCPCS: 50200; 77012; 85025; 88305; J2250; J3010; J7030; 88307

== ENCOUNTER → 2016-12-18 | Outpatient (CLI) | payer MEDICARE, BC ==
[~2016-12-18] MED LIST changes: +SIMV40TA PO
--- NOTE | 2016-12-19 09:55 | RADRPT ---
EXAM DATE/TIME: 12/18/2016 16:33 CONSULTATION: 86-year-old male kindly referred for consideration of thermal ablation of a left renal mass. CT exami nation of 08/24/2016 is reviewed and demonstrates an exophytic 3.1 cm solid mass arising from the infe rior pole of the left kidney. This was biopsied on 11/02/2016 and pathology demonstrates renal cell car cinoma, clear cell type, Luis Miguel grade 2. The R.E.N.A.L. nephrectomy score is 4 (mild complexity for nephron spurring procedure). This mass appears to be a very good candidate for thermal ablation. We w ill arrange interventional radiology clinic visit for formal consultation. Thank you for this consultation. Selvin Bennett MD on December 19, 2016 at 8:29 Board Certified Radiologist. This report was verified electronically.
== END ==
LOC: HRAD 12:12
PROVIDERS: ATTEND Urology
DX: C64.2 Malignant neoplasm of left kidney, except renal pelvis (principal)

== ENCOUNTER 2017-01-03 13:21 | Day surgery (SDC) | payer MEDICARE, BC ==
[2017-01-03 13:35] VITALS: BP 153/84; PULSE 56; RESP 18; TEMP 97.6; O2SAT 98
[2017-01-03] MEDS ORDERED: FERR324T8 PO (13:44)
[2017-01-03] MEDS ORDERED: OCUVTAB4 PO (13:44)
--- NOTE | 2017-01-03 15:19 | RADRPT ---
EXAM DATE/TIME: 01/03/2017 00:00 [facility] COMPARISON : INDICATIONS : Renal mass OBJECTIVE: Temperature: 97.6 Heart Rate: 56 Blood Pressure: 153/84 Respiratory: 18 Oximetry: 98 PNEUMONIA VACCINE: YES HISTORY OF PRESENT ILLNESS: Mr. Gary is a very pleasant 86 year old white male who is accompanied on this visit by his daughter. He was diagnosed with a left-sided renal mass noted incidentally on CT examination performed followi ng an episode of acute appendicitis. This was biopsied on 11/02/2016 and pathology demonstrates renal c ell carcinoma, clear cell type, Luis Miguel grade 2. He is essentially asymptomatic and denies any flank pain, hematuria, or unintentional weight loss. PAST MEDICAL HISTORY : 1. Hypertension. 2. [place] 1985 3. LEFT KIDNEY MASS 4. LIVER DISEASE 5. Benign prostatic hyperplasia, (BPH) PAST SURGICAL HISTORY : 1. Appendectomy. 2. COLONOSCOPY 3. LEFT HIP ARTHROPLASTY 4. CABG5 VESSEL 5. RIGHT SIDE PACEMAKER SOCIAL HISTORY : Social alcohol use. Tobacco;none. ALLERGIES: 1. TYLENOL MEDICATIONS: 1. [id number] mg q.d. discontinued on 12/30/2016 2. BENAZEPRIL 5 mg q.d. 3. TRIAMTERENE/HCTZ 37.5-25 mg q.d. 4. CARVEDILOL 25 mg b.i.d. 5. OMEPRAZOLE 40 mg q.d. 6. MULTIVITAMIN q.d. 7. ULORIC 40 mg q.d. 8. SIMVASTATIN 40 mg q.h.s. 9. PRESERVISION AREDS 1 TAB IRON SUPP 325 mg b.i.d. PHYSICAL EXAMINATION: General: Well-nourished. No acute distress. Lungs: Clear to auscultation bilaterally Heart: Systolic murmur. Regular rate and rhythm.. Abdomen: Soft, nontender nondistended. IMAGING STUDIES: CT examination dated 08/24/[address] examination dated 12/03/2016 are reviewed. There is a abeba d enhancing mass arising from the inferior pole of the left kidney measuring 3.1 x 2.6 cm. No evidenc e for perinephric extension or renal vein invasion. No evidence for distant metastatic disease. The R .E.N.A.L. nephrectomy the examination is 4 (R1,E1,N1,L1). ASSESSMENT: 86-year-old male with 3.1 cm biopsy proven renal cell carcinoma arising from the inferior pole of the left kidney. He is an excellent candidate for nephron sparing thermal ablation. PLAN: End of plan for cryoablation. TIME SPENT: 20 minutes Selvin Bennett MD on January 03, 2017 at 14:09 Board Certified Radiologist. This report was verified electronically.
== END 2017-01-03 15:00 | disposition home or self-care (01) ==
LOC: HROP 13:21 → HRIP 13:23 → HROP 15:00
PROVIDERS: ATTEND Urology
DX: C64.2 Malignant neoplasm of left kidney, except renal pelvis (principal); I10 Essential (primary) hypertension; I25.2 Old myocardial infarction; Z95.0 Presence of cardiac pacemaker; Z96.642 Presence of left artificial hip joint

== ENCOUNTER 2017-01-04 07:21 | Day surgery (SDC) | payer MEDICARE, BC ==
[~2017-01-04] VITALS: Ht 175.3 cm; Wt 80.0 kg
[~2017-01-04 07:21] MED LIST changes: +FERR324T8 PO
[2017-01-04 07:39] VITALS: BP 149/84; PULSE 59; RESP 20; TEMP 97.9; O2SAT 92
[2017-01-04 08:18] LABS: AUTOMATED NEUTROPHIL # 3.4 TH/MM3 (1.8-7.7); BASOPHIL % 0.5 % (0.0-2.0); EOSINOPHIL # 0.1 TH/MM3 (0-0.4); EOSINOPHIL % 2.5 % (0.0-4.0); HEMATOCRIT 38.8 % (39.0-51.0); HEMO FLAGS DIFF FINAL; LYMPH % 26.6 % (9.0-44.0); LYMPHOCYTE # 1.4 TH/MM3 (1.0-4.8); MEAN CELL VOLUME 94.3 FL (80.0-100.0); MEAN CORPUSCULAR HEMOGLOBIN 30.9 PG (27.0-34.0); MEAN CORPUSCULAR HGB CONC 32.8 % (32.0-36.0); MONO % 7.9 % (0.0-8.0); NEUT % 62.5 % (16.0-70.0); PLATELET COUNT 109 TH/MM3 (150-450); RED BLOOD COUNT 4.12 MIL/MM3 (4.50-5.90); RED CELL DISTRIBUTION WIDTH 13.1 % (11.6-17.2); WHITE BLOOD COUNT 5.4 TH/MM3 (4.0-11.0)
[2017-01-04 08:28] LABS: APTT (PATIENT) 28.1 SEC (24.3-30.1); PROTHROMBIN TIME - PATIENT 10.7 SEC (9.8-11.6)
[2017-01-04] MEDS ORDERED: ceFAZolin 2 GM PREMIX 50 ML IV SCH (08:30)
[2017-01-04] MEDS ORDERED: METOPROLOL TARTRATE 25 MG TAB PO PRN (08:30)
[2017-01-04] MEDS ORDERED: LACTATED RINGER'S 1000 ML IV PRN (08:30)
[2017-01-04] MEDS ORDERED: SODIUM CHLOR 0.9% 1000 ML INJ 1,000 ML IV SCH (08:30)
[2017-01-04] MEDS ORDERED: POVIDONE IODINE 5% (ANTISEPSIS KIT) 4 APPLICATIONS EACH NARE PRN (08:30)
[2017-01-04] MEDS ORDERED: SODIUM CHLORID 0.9% 500 ML IV PRN (08:30)
[2017-01-04] MEDS ORDERED: INSULIN HUMAN REGULAR 1,000 UNITS/10 ML VIAL SQ PRN (08:30)
[2017-01-04] MEDS ORDERED: CHLORHEXIDINE GLUCONATE 2 % 1 PACK (2 CLOTHS) TOPICAL PRN (08:30)
[2017-01-04 08:32] LABS: BICARBONATE 27.6 MEQ/L (21.0-32.0)
[2017-01-04] MEDS ORDERED: LIDOCAINE 1%/EPINEPHrine 1:100,000 SOLN 20 ML VIAL ONE (10:09)
[2017-01-04] MEDS ORDERED: DEXAMETHASONE SOD PHOS 4 MG/ML VIAL ONE (10:13)
[2017-01-04] MEDS ORDERED: FAMOTIDINE 20 MG/2 ML VIAL ONE (10:13)
[2017-01-04] MEDS ORDERED: SUGAMMADEX SODIUM 200 MG/2 ML VIAL IV PUSH ONE ×2 (10:13)
[2017-01-04] MEDS ORDERED: MIDAZOLAM HCL 2 MG/2 ML VIAL ONE (10:13)
--- NOTE | 2017-01-04 12:43 | PD.RAD ---
Post Procedure Progress Note Pre Procedure Diagnosis: (1) Renal cell cancer Post Procedure Diagnosis: (1) Renal cell cancer Procedure Date: Jan 04, 2017 Supervising Radiologist: Selvin Bennett Proceduralist/Assist: Other Estimated blood loss: <10 ml Anesthesia: General Plan of Activity Patient to Unit: ROPU Patient Condition: Good Additional Comments: Two cryo probes used. No post bleed. Excellent margins. See PACS Report for procedural detail/treatment Selvin Bennett MD Jan 04, 2017 12:43
[2017-01-04] MEDS ORDERED: DO NOT ADM ANY ANTICOAGULANT DRUGS PRN (13:00)
[2017-01-04] MEDS ORDERED: *morphine SULFATE 8 MG/ML PERIprocedure ONLY ONE ×2 (13:15→13:46)
[2017-01-04 13:55] LABS: HEMATOCRIT 38.8 % (39.0-51.0); REVIEW FLAG FINAL
[2017-01-04 14:10] VITALS: BP 140/81; PULSE 56; RESP 18; TEMP 97.5; O2SAT 91
[2017-01-04 14:50] VITALS: BP 150/90; PULSE 56; RESP 18; O2SAT 95
[2017-01-04] MEDS ORDERED: HYDROmorphone HCL 2 MG TAB PO PRN (15:00)
--- NOTE | 2017-01-04 15:12 | RADRPT ---
EXAM DATE/TIME: 01/04/2017 11:05 INDICATIONS : Left renal mass Anesthesia and pain control was provided by the Anesthesia department. DEVICE(S): 1.) PERC cryoablation probe MEDICAL HISTORY : Hypertension. SURGICAL HISTORY : Appendectomy. ENCOUNTER: Initial ACUITY: 1 day PAIN SCORE: 0/10 LOCATION: Left flank PROCEDURE : 1. CT guided cryoablation. Under sterile conditions and using aseptic technique with CT guidance the mass was localized and sati sfactory approach was taken to access the lesion. Using automated exposure control and adjustment of the mA and/or kV according to patient size, radiation dose was kept as low as reasonably achievable to obtain optimal diagnostic quality images. DICOM format image data is available electronically for review and comparison. [employer] Cryoprobes were employed using percutaneous technique employing the prescribed probes. A freeze-thaw, freeze-thaw technique was employed and serial imaging demonstrated an ice ball encomp assing the entire lesion. Post procedure images demonstrate expected postoperative changes without e vidence of hematoma. CONCLUSION: Uncomplicated cryoablation as above. Selvin Bennett MD on January 04, 2017 at 15:09 Board Certified Radiologist. This report was verified electronically.
[2017-01-04] MEDS ORDERED: ONDANSETRON HCL 4 MG/2 ML VIAL IV PUSH ONE (15:15)
[2017-01-04 15:50] VITALS: BP 159/83; PULSE 57; RESP 20; O2SAT 95
[2017-01-04 16:50] VITALS: BP 146/83; PULSE 56; RESP 18; O2SAT 95
[2017-01-04 17:14] LABS: HEMATOCRIT 38.2 % (39.0-51.0); REVIEW FLAG FINAL
[2017-01-04 18:28] VITALS: BP 117/70; PULSE 66; RESP 18; O2SAT 95
[2017-01-04] MEDS ORDERED: SODIUM CHLORID 0.9% 500 ML INJ 500 ML IV SCH (20:00)
== END 2017-01-04 19:52 | disposition home or self-care (01) ==
LOC: HSDC 07:21 → HRIP 07:26 → HSDC 19:52
PROVIDERS: ATTEND Urology
DX: C64.9 Malignant neoplasm of unspecified kidney, except renal pelvis (principal); I10 Essential (primary) hypertension; K76.9 Liver disease, unspecified; Z95.0 Presence of cardiac pacemaker; Z01.818 Encounter for other preprocedural examination
CPT/HCPCS: 50593; 77013; 80048; 85014; 85018; 85025; 85610; 85730; C2618; J1100; J2250; J2270; J2405; J3010; J7030; J7040

== ENCOUNTER 2017-01-11 13:22 | Day surgery (SDC) | payer MEDICARE, BC ==
[~2017-01-11 13:22] MED LIST changes: -MULT-135 PO
[2017-01-11 13:36] VITALS: BP 137/67; PULSE 63; RESP 20; TEMP 98.1; O2SAT 98
--- NOTE | 2017-01-11 16:23 | RADRPT ---
EXAM DATE/TIME: 01/11/2017 00:00 [facility] COMPARISON : INDICATIONS : F/U POST RENAL CRYO OBJECTIVE: Temperature: 98.1 Heart Rate: 63 Blood Pressure: 137/67 Respiratory: 20 Oximetry: 98 PNEUMONIA VACCINE: HISTORY: 86-year-old male with history of biopsy-proven 3.1 cm left renal cell carcinoma status post cryoabla tion on 01/04/2017. He had an uneventful postoperative course and reports 2 episodes of low-grade fever s, last 2 days ago. He also reports lethargy on discharge which has improved significantly. Today he is essentially without complaints and denies significant abdominal pain, hematuria, or fever. On physical examination he appears well with a soft nontender and nondistended abdomen. He is afebril e. ASSESSMENT: 86-year-old male status post technically successful cryoablation of 3.1 cm left renal cell carcinoma with expected fairly uneventful postoperative course. PLAN: New baseline renal mass CT examination in 2 months. TIME SPENT: 15 minutes Selvin Bennett MD on January 11, 2017 at 16:14 Board Certified Radiologist. This report was verified electronically.
== END 2017-01-11 15:20 | disposition home or self-care (01) ==
LOC: HRIP 13:22 → HROP 13:22
PROVIDERS: ATTEND Radiology Body Imaging
DX: Z08 Encounter for follow-up examination after completed treatment for malignant neoplasm (principal)

== ENCOUNTER → 2017-01-12 | Outpatient (CLI) | payer MEDICARE, BC ==
[2017-01-12 11:55] LABS: BASOPHIL % 0.2 % (0.0-2.0); EOSINOPHIL # 0.1 TH/MM3 (0-0.4); EOSINOPHIL % 1.5 % (0.0-4.0); HEMATOCRIT 30.9 % (39.0-51.0); HEMO FLAGS DIFF FINAL; LYMPH % 22.7 % (9.0-44.0); LYMPHOCYTE # 1.7 TH/MM3 (1.0-4.8); MEAN CELL VOLUME 93.8 FL (80.0-100.0); MEAN CORPUSCULAR HEMOGLOBIN 31.6 PG (27.0-34.0); MEAN CORPUSCULAR HGB CONC 33.6 % (32.0-36.0); MONO % 9.2 % (0.0-8.0); NEUT % 66.4 % (16.0-70.0); PLATELET COUNT 201 TH/MM3 (150-450); RED BLOOD COUNT 3.29 MIL/MM3 (4.50-5.90); WHITE BLOOD COUNT 7.5 TH/MM3 (4.0-11.0)
[2017-01-12 12:48] LABS: ALT (GPT) 33 U/L (12-78); ANION GAP 7 MEQ/L (5-15); AST (GOT) 24 U/L (15-37); BICARBONATE 26.7 MEQ/L (21.0-32.0); BLOOD UREA NITROGEN 37 MG/DL (7-18); CHLORIDE 107 MEQ/L (98-107); GLOMERULAR FILTRATION RATE 45 ML/MIN (>89); POTASSIUM 5.1 MEQ/L (3.5-5.1); SODIUM (NA) 141 MEQ/L (136-145)
[2017-01-12 12:50] LABS: ALKALINE PHOSPHATASE 88 U/L (45-117); TOTAL BILIRUBIN ADULT 0.8 MG/DL (0.2-1.0)
== END ==
LOC: ELAB 11:02
PROVIDERS: ATTEND Family Medicine
DX: N18.3 Chronic kidney disease, stage 3 (moderate) (principal); D63.1 Anemia in chronic kidney disease
CPT/HCPCS: 36415; 80053; 85025

== ENCOUNTER → 2017-03-28 | Outpatient (CLI) | payer MEDICARE, BC ==
[2017-03-28 12:07] LABS: AUTOMATED NEUTROPHIL # 4.9 TH/MM3 (1.8-7.7); BASOPHIL % 0.4 % (0.0-2.0); EOSINOPHIL # 0.2 TH/MM3 (0-0.4); EOSINOPHIL % 2.2 % (0.0-4.0); HEMATOCRIT 39.1 % (39.0-51.0); HEMO FLAGS DIFF FINAL; LYMPH % 21.9 % (9.0-44.0); LYMPHOCYTE # 1.5 TH/MM3 (1.0-4.8); MEAN CELL VOLUME 95.3 FL (80.0-100.0); MEAN CORPUSCULAR HEMOGLOBIN 31.9 PG (27.0-34.0); MEAN CORPUSCULAR HGB CONC 33.5 % (32.0-36.0); MONO % 5.4 % (0.0-8.0); NEUT % 70.1 % (16.0-70.0); PLATELET COUNT 128 TH/MM3 (150-450); RED BLOOD COUNT 4.11 MIL/MM3 (4.50-5.90); RED CELL DISTRIBUTION WIDTH 13.8 % (11.6-17.2)
[2017-03-28 12:18] LABS: ANION GAP 6 MEQ/L (5-15); AST (GOT) 17 U/L (15-37); BICARBONATE 29.6 MEQ/L (21.0-32.0); BLOOD UREA NITROGEN 25 MG/DL (7-18); CHLORIDE 105 MEQ/L (98-107); GLOMERULAR FILTRATION RATE 50 ML/MIN (>89); GLUCOSE,FASTING 104 MG/DL (74-99); POTASSIUM 4.2 MEQ/L (3.5-5.1); SODIUM (NA) 141 MEQ/L (136-145)
[2017-03-28 12:19] LABS: ALT (GPT) 21 U/L (12-78)
[2017-03-28 12:21] LABS: ALKALINE PHOSPHATASE 87 U/L (45-117); HDL CHOLESTEROL 54.3 MG/DL (40.0-60.0); LDL CHOLESTEROL 84 MG/DL (0-99); TOTAL BILIRUBIN ADULT 0.6 MG/DL (0.2-1.0)
== END ==
LOC: ELAB 09:41
PROVIDERS: ATTEND Family Medicine
DX: E78.5 Hyperlipidemia, unspecified (principal); D64.9 Anemia, unspecified; N18.3 Chronic kidney disease, stage 3 (moderate); E55.9 Vitamin D deficiency, unspecified
CPT/HCPCS: 36415; 80053; 80061; 82306; 85025

== ENCOUNTER → 2017-06-29 | Outpatient (CLI) | payer MEDICARE, BC ==
[~2017-06-29] MED LIST changes: +ASPI-516 CHEW; -ASPI81CH CHEW
[2017-06-29 11:50] LABS: AUTOMATED NEUTROPHIL # 4.3 TH/MM3 (1.8-7.7); BASOPHIL % 0.5 % (0.0-2.0); EOSINOPHIL # 0.2 TH/MM3 (0-0.4); EOSINOPHIL % 2.7 % (0.0-4.0); HEMOGLOBIN 13.2 GM/DL (13.0-17.0); LYMPH % 25.9 % (9.0-44.0); LYMPHOCYTE # 1.8 TH/MM3 (1.0-4.8); MEAN CELL VOLUME 96.3 FL (80.0-100.0); MEAN CORPUSCULAR HEMOGLOBIN 32.5 PG (27.0-34.0); MEAN CORPUSCULAR HGB CONC 33.8 % (32.0-36.0); MEAN PLATELET VOLUME 8.3 FL (7.0-11.0); MONO % 7.1 % (0.0-8.0); MONOCYTE # 0.5 TH/MM3 (0-0.9); NEUT % 63.8 % (16.0-70.0); PLATELET COUNT 135 TH/MM3 (150-450); RED BLOOD COUNT 4.05 MIL/MM3 (4.50-5.90); RED CELL DISTRIBUTION WIDTH 13.1 % (11.6-17.2); WHITE BLOOD COUNT 6.8 TH/MM3 (4.0-11.0)
[2017-06-29 11:57] LABS: ALBUMIN 3.9 GM/DL (3.4-5.0); ALT (GPT) 19 U/L (12-78); AST (GOT) 11 U/L (15-37); BICARBONATE 31.1 MEQ/L (21.0-32.0); BLOOD UREA NITROGEN 27 MG/DL (7-18); CALCIUM 8.7 MG/DL (8.5-10.1); CHLORIDE 105 MEQ/L (98-107); CREATININE 1.32 MG/DL (0.60-1.30); GLOMERULAR FILTRATION RATE 52 ML/MIN (>89); GLUCOSE,FASTING 84 MG/DL (74-99); SODIUM (NA) 141 MEQ/L (136-145); TRIGLYCERIDES 132 MG/DL (42-150)
[2017-06-29 11:59] LABS: ALKALINE PHOSPHATASE 77 U/L (45-117); CHOLESTEROL 139 MG/DL (120-200); CHOLESTEROL/ HDL RATIO 2.63 RATIO; HDL CHOLESTEROL 52.7 MG/DL (40.0-60.0); LDL CHOLESTEROL 60 MG/DL (0-99); TOTAL BILIRUBIN ADULT 0.5 MG/DL (0.2-1.0); TOTAL PROTEIN 7.4 GM/DL (6.4-8.2)
== END ==
LOC: ELAB 10:37
PROVIDERS: ATTEND Family Medicine
DX: E78.5 Hyperlipidemia, unspecified (principal); N18.3 Chronic kidney disease, stage 3 (moderate); E55.9 Vitamin D deficiency, unspecified
CPT/HCPCS: 36415; 80053; 80061; 82306; 85025

== ENCOUNTER → 2017-07-31 | Outpatient (CLI) | payer MEDICARE, BC ==
[2017-07-31 11:56] LABS: AUTOMATED NEUTROPHIL # 3.8 TH/MM3 (1.8-7.7); BASOPHIL % 0.5 % (0.0-2.0); EOSINOPHIL # 0.2 TH/MM3 (0-0.4); EOSINOPHIL % 3.1 % (0.0-4.0); HEMATOCRIT 39.5 % (39.0-51.0); HEMOGLOBIN 13.4 GM/DL (13.0-17.0); LYMPH % 24.9 % (9.0-44.0); LYMPHOCYTE # 1.5 TH/MM3 (1.0-4.8); MEAN CELL VOLUME 95.6 FL (80.0-100.0); MEAN CORPUSCULAR HEMOGLOBIN 32.6 PG (27.0-34.0); MEAN PLATELET VOLUME 8.4 FL (7.0-11.0); MONO % 6.8 % (0.0-8.0); MONOCYTE # 0.4 TH/MM3 (0-0.9); NEUT % 64.7 % (16.0-70.0); PLATELET COUNT 124 TH/MM3 (150-450); RED BLOOD COUNT 4.13 MIL/MM3 (4.50-5.90); WHITE BLOOD COUNT 5.9 TH/MM3 (4.0-11.0)
[2017-07-31 12:07] LABS: AST (GOT) 15 U/L (15-37); BICARBONATE 32.1 MEQ/L (21.0-32.0); BLOOD UREA NITROGEN 23 MG/DL (7-18); CHLORIDE 103 MEQ/L (98-107); CREATININE 1.49 MG/DL (0.60-1.30); GLOMERULAR FILTRATION RATE 45 ML/MIN (>89); GLUCOSE,FASTING 95 MG/DL (74-99); SODIUM (NA) 140 MEQ/L (136-145)
[2017-07-31 12:08] LABS: BILIRUBIN, URINE NEG (NEG); BLOOD, URINE NEG (NEG); GLUCOSE,URINE NEG (NEG); HYALINE CAST, URINE 1 /lpf (RARE); KETONE, URINE NEG (NEG); MUCUS URINE FEW /lpf (OCC); NITRITE,URINE NEG (NEG); URINE COLOR YELLOW (YELLW/STRAW); URINE LEUKOCYTE ESTERASE NEG (NEG)
[2017-07-31 12:09] LABS: ALT (GPT) 19 U/L (12-78)
[2017-07-31 12:14] LABS: ALKALINE PHOSPHATASE 77 U/L (45-117); TOTAL BILIRUBIN ADULT 0.8 MG/DL (0.2-1.0); TOTAL PROTEIN 7.5 GM/DL (6.4-8.2)
== END ==
LOC: ELAB 09:01
PROVIDERS: ATTEND Family Medicine
DX: N18.3 Chronic kidney disease, stage 3 (moderate) (principal)
CPT/HCPCS: 36415; 80053; 81001; 82043; 84550; 85025

== ENCOUNTER → 2017-09-11 | Outpatient (CLI) | payer MEDICARE, BC ==
[2017-09-11 13:27] LABS: AUTOMATED NEUTROPHIL # 4.1 TH/MM3 (1.8-7.7); BASOPHIL # 0.1 TH/MM3 (0-0.2); BASOPHIL % 1.2 % (0.0-2.0); EOSINOPHIL # 0.1 TH/MM3 (0-0.4); EOSINOPHIL % 2.3 % (0.0-4.0); HEMATOCRIT 39.2 % (39.0-51.0); HEMOGLOBIN 13.8 GM/DL (13.0-17.0); LYMPH % 22.8 % (9.0-44.0); LYMPHOCYTE # 1.4 TH/MM3 (1.0-4.8); MEAN CELL VOLUME 96.1 FL (80.0-100.0); MEAN CORPUSCULAR HEMOGLOBIN 33.7 PG (27.0-34.0); MEAN CORPUSCULAR HGB CONC 35.1 % (32.0-36.0); MEAN PLATELET VOLUME 8.9 FL (7.0-11.0); MONO % 6.6 % (0.0-8.0); MONOCYTE # 0.4 TH/MM3 (0-0.9); NEUT % 67.1 % (16.0-70.0); PLATELET COUNT 126 TH/MM3 (150-450); RED BLOOD COUNT 4.08 MIL/MM3 (4.50-5.90); RED CELL DISTRIBUTION WIDTH 12.2 % (11.6-17.2); WHITE BLOOD COUNT 6.1 TH/MM3 (4.0-11.0)
[2017-09-11 13:35] LABS: ALBUMIN 4.1 GM/DL (3.4-5.0); AST (GOT) 17 U/L (15-37); BICARBONATE 30.4 MEQ/L (21.0-32.0); BLOOD UREA NITROGEN 30 MG/DL (7-18); CHLORIDE 103 MEQ/L (98-107); CREATININE 1.47 MG/DL (0.60-1.30); GLOMERULAR FILTRATION RATE 46 ML/MIN (>89); GLUCOSE,FASTING 101 MG/DL (74-99); SODIUM (NA) 140 MEQ/L (136-145)
[2017-09-11 13:39] LABS: ALKALINE PHOSPHATASE 72 U/L (45-117); ALT (GPT) 20 U/L (12-78); TOTAL BILIRUBIN ADULT 0.6 MG/DL (0.2-1.0)
[2017-09-11 13:46] LABS: BILIRUBIN, URINE NEG (NEG); BLOOD, URINE NEG (NEG); GLUCOSE,URINE NEG (NEG); KETONE, URINE NEG (NEG); NITRITE,URINE NEG (NEG); PH, URINE 7.5 (5.0-8.5); SQUAMOUS EPITHELIAL CELL URINE <1 /hpf (0-5); URINE COLOR YELLOW (YELLW/STRAW); URINE LEUKOCYTE ESTERASE NEG (NEG)
== END ==
LOC: ELAB 09:03
PROVIDERS: ATTEND Family Medicine
DX: D69.6 Thrombocytopenia, unspecified (principal); N18.3 Chronic kidney disease, stage 3 (moderate)
CPT/HCPCS: 36415; 80053; 81001; 85025

== ENCOUNTER → 2017-12-11 | Outpatient (CLI) | payer MEDICARE, BC ==
[2017-12-11 12:36] LABS: BASOPHIL % 0.6 % (0.0-2.0); EOSINOPHIL # 0.9 TH/MM3 (0-0.4); EOSINOPHIL % 15.1 % (0.0-4.0); HEMATOCRIT 39.1 % (39.0-51.0); HEMOGLOBIN 13.1 GM/DL (13.0-17.0); LYMPH % 28.6 % (9.0-44.0); LYMPHOCYTE # 1.8 TH/MM3 (1.0-4.8); MEAN CELL VOLUME 94.9 FL (80.0-100.0); MEAN CORPUSCULAR HEMOGLOBIN 31.9 PG (27.0-34.0); MEAN CORPUSCULAR HGB CONC 33.5 % (32.0-36.0); MEAN PLATELET VOLUME 8.8 FL (7.0-11.0); MONO % 6.8 % (0.0-8.0); MONOCYTE # 0.4 TH/MM3 (0-0.9); NEUT % 48.9 % (16.0-70.0); PLATELET COUNT 125 TH/MM3 (150-450); RED BLOOD COUNT 4.12 MIL/MM3 (4.50-5.90); RED CELL DISTRIBUTION WIDTH 12.5 % (11.6-17.2); WHITE BLOOD COUNT 6.2 TH/MM3 (4.0-11.0)
[2017-12-11 12:49] LABS: BILIRUBIN, URINE NEG (NEG); BLOOD, URINE NEG (NEG); GLUCOSE,URINE NEG (NEG); KETONE, URINE NEG (NEG); NITRITE,URINE NEG (NEG); PH, URINE 6.5 (5.0-8.5); URINE COLOR YELLOW (YELLW/STRAW); URINE LEUKOCYTE ESTERASE TRACE (NEG)
[2017-12-11 12:53] LABS: ALT (GPT) 19 U/L (12-78); AST (GOT) 13 U/L (15-37); BICARBONATE 28.7 MEQ/L (21.0-32.0); BLOOD UREA NITROGEN 26 MG/DL (7-18); CALCIUM 8.7 MG/DL (8.5-10.1); CHLORIDE 105 MEQ/L (98-107); CREATININE 1.43 MG/DL (0.60-1.30); GLOMERULAR FILTRATION RATE 47 ML/MIN (>89); GLUCOSE,FASTING 93 MG/DL (74-99); SODIUM (NA) 142 MEQ/L (136-145)
[2017-12-11 12:55] LABS: ALBUMIN 4.1 GM/DL (3.4-5.0); ALKALINE PHOSPHATASE 70 U/L (45-117); TOTAL BILIRUBIN ADULT 0.7 MG/DL (0.2-1.0); TOTAL PROTEIN 7.3 GM/DL (6.4-8.2)
== END ==
LOC: ELAB 09:31
PROVIDERS: ATTEND Family Medicine
DX: N18.3 Chronic kidney disease, stage 3 (moderate) (principal)
CPT/HCPCS: 36415; 80053; 81001; 85025